=== PATIENT | female | born 1955 | race Caucasian/White ===

== ENCOUNTER 2023-05-27 19:31 | Observation (INO) | payer MEDICARE, SELFPAY ==
[2023-05-27 19:32] VITALS: BP 139/56; PULSE 106; RESP 18; TEMP 37; O2SAT 98
--- NOTE | 2023-05-27 20:01 | EKG12_ITS ---
Test Reason : DYSRHYTHMIA Blood Pressure : / mmHG Vent. Rate : 093 BPM Atrial Rate : 093 BPM P-R Int : 126 ms QRS Dur : 080 ms QT Int : 360 ms P-R-T Axes : 070 053 088 degrees QTc Int : 447 ms Normal sinus rhythm Possible Left atrial enlargement Nonspecific ST and T wave abnormality Abnormal ECG Confirmed by Reuben Navarrete ([id number]), supervising film or videotape editor NALDO AMEZCUA ([id number]) on 05/28/2023 11:05:59 AM Referred By: Confirmed By:Reuben Navarrete
--- NOTE | 2023-05-27 20:18 | EX.ED.DYSGE1 ---
HPI <EL Lynn - Last Filed: 05/27/23 22:21> History of Present Illness Chief Complaint: Fall Narrative Narrative: Patient is a 67-year-old female with history of hypertension hyperlipidemia diabetes who presents to the emergency department after being down on the floor for 5 days. Patient states 5 days ago, she got on her butt to get some boxes out from under her bed and she was unable to get herself up. Her phone was out of battery, she was unable to be found until she was able to hit the window with a broom and someone saw her. Patient states that she was able to eat a sleeve of cookies as well as Coke 0 however she was defecating and urinating on herself. Patient states that her butt is sore, she also has abrasions to bilateral elbows. Patient does not know why she was so weak. She normally does not walk with any walker or cane. She is here for evaluation [facility] <EL Lynn - Last Filed: 05/27/23 22:21> [facility] Home Medications losartan 100 mg tablet 100 mg PO QDAY #90 tabs 05/05/17 [Rx Last Taken Unknown] metoprolol tartrate 100 mg tablet 100 mg PO BID #180 tabs 05/05/17 [Rx Last Taken Unknown] pravastatin 40 mg tablet 40 mg PO QHS #90 tabs 05/05/17 [Rx Last Taken Unknown] amlodipine 10 mg tablet 10 mg PO QDAY #90 tabs 04/20/19 [Rx Last Taken Unknown] doxazosin 4 mg tablet,extended release 24 hr (Cardura XL) 4 mg PO QDAY #90 tabs 05/17/19 [Rx Last Taken Unknown] aspirin 81 mg tablet,delayed release (Adult Low Dose Aspirin) 81 mg PO DAILY 05/27/23 [History Last Taken Unknown] cholecalciferol (vitamin D3) 250 mcg (10,000 unit) capsule 250 mcg PO DAILY 05/27/23 [History Last Taken Unknown] insulin detemir U-100 100 unit/mL (3 mL) subcutaneous pen (Levemir FlexPen) 70 unit subcut QHS 05/27/23 [History Last Taken Unknown] metformin 1,000 mg tablet 1,000 mg PO BID 05/27/23 [History Last Taken Unknown] Allergy/AdvReac Type Severity Reaction Status Date / Time lisinopril AdvReac cough Verified 05/27/23 19:41 Social History Smoking Status: Current every day smoker tobacco type: cigarettes ROS <EL Lynn - Last Filed: 05/27/23 22:21> ROS ED ROS Narrative Constitutional: Negative for fever, chills, weight loss. Positive for weakness Eyes: Negative for vision loss, vision change, double vision ENT: Negative for any sore throat, ear pain, congestion Cardiovascular: Negative for any chest pain, tightness, palpitations Respiratory: Negative for any cough, sputum production, hemoptysis, dyspnea, dyspnea on exertion, orthopnea Gastrointestinal: Negative for any abdominal pain, nausea, vomiting, diarrhea, constipation, blood in stool, blood in vomit : Negative for any urinary frequency, dysuria, retention, blood in urine Muscle skeletal: Negative for any neck pain, back pain Neurological: Negative for any headache, syncope, dizziness Skin: Negative for any rashes, itching, lacerations. Positive for abrasions to bilateral elbows Psychiatric: Negative for any depression, anxiety, stress, suicidal ideation, homicidal ideation Hematologic: Negative for any excessive bruising, easy bleeding EXAM <EL Lynn - Last Filed: 05/27/23 22:21> Physical Exam Narrative Exam Narrative: Vital signs reviewed. Patient did appear disheveled. Patient's legs were covered with urine and feces HEET: Head normocephalic atraumatic, TMs clear bilaterally. Posterior pharynx is clear, dry mucous membranes. Nares clear bilaterally. Neck: Supple with no lymphadenopathy or tenderness. No signs of meningismus. Cardiac: Regular rate and rhythm no murmurs gallops or rubs, equal peripheral pulses bilaterally. Respiratory: Lungs clear to auscultation bilaterally. No chest tenderness. Abdomen: Soft, nontender, nondistended. No abdominal bruit or pulsatile masses. No hepatosplenomegaly Extremities: No peripheral edema, no signs of gross trauma or deformity. Active full range of motion of all extremities. Neuro: Cranial nerves II through XII intact, no focal neurological deficits. Skin: Clean dry and intact with no rash, purpura, petechiae, vesicles or pustules. Backs/flank: No CVA tenderness, no midline spinal tenderness, no deformity. I did turn the patient, patient does have pain on palpation to the buttocks patient does have a stage II pressure ulcer on coccyx, small wounds to the buttocks where she was scooting around.. Patient is able to flex and extend all upper and lower extremities. Psych: Normal mood and affect. No SI, HI or acute psychosis. Const Vital Signs: 05/27/23 19:32 05/27/23 19:32 05/27/23 20:32 Temperature 98.6 F Temperature Source Oral Pulse Rate 106 H 95 Respiratory Rate 18 20 H Respiratory Effort Normal Non-Labored Respiratory Depth Normal Respiratory Pattern Normal Blood Pressure 139/56 H 142/56 H Blood Pressure Mean 83 84 Pulse Ox 98 Oxygen Delivery Method Room Air Room Air 05/27/23 21:00 05/27/23 22:00 Temperature Temperature Source Pulse Rate 73 89 Respiratory Rate 14 20 H Respiratory Effort Respiratory Depth Respiratory Pattern Blood Pressure 143/78 H 135/52 H Blood Pressure Mean 99 79 Pulse Ox 96 Oxygen Delivery Method Room Air <Dr. Dayday Roberts DO - Last Filed: 05/27/23 22:30> Physical Exam Const Vital Signs: 05/27/23 19:32 05/27/23 19:32 05/27/23 20:32 Temperature 98.6 F Temperature Source Oral Pulse Rate 106 H 95 Respiratory Rate 18 20 H Respiratory Effort Normal Non-Labored Respiratory Depth Normal Respiratory Pattern Normal Blood Pressure 139/56 H 142/56 H Blood Pressure Mean 83 84 Pulse Ox 98 Oxygen Delivery Method Room Air Room Air 05/27/23 21:00 05/27/23 22:00 Temperature Temperature Source Pulse Rate 73 89 Respiratory Rate 14 20 H Respiratory Effort Respiratory Depth Respiratory Pattern Blood Pressure 143/78 H 135/52 H Blood Pressure Mean 99 79 Pulse Ox 96 Oxygen Delivery Method Room Air MICHAEL <EL Lynn - Last Filed: 05/27/23 22:21> [facility] Lab Data Labs: Laboratory Results - last 24 hr 05/27/23 05/27/23 20:15 20:52 WBC 9.7 RBC 3.95 L Hgb 10.9 L Hct 33.9 L MCV 85.8 MCH 27.6 MCHC 32.2 RDW Std Deviation 45.3 H RDW Coeff of Davian 14.6 Plt Count 292 MPV 9.6 Immature Gran % (Auto) 1.000 H Neut % (Auto) 63.7 Lymph % (Auto) 20.4 [place] % (Auto) 11.5 H Eos % (Auto) 2.7 Baso % (Auto) 0.7 Absolute Neuts (auto) 6.2 Absolute Lymphs (auto) 1.99 Nucleated RBC % 0 Sodium 142 Potassium 3.5 Chloride 112 H Carbon Dioxide 21.0 Anion Gap 9 BUN 18 Creatinine 0.77 Est GFR (MDRD) Af Amer 96 Est GFR (MDRD) Non-Af 79 BUN/Creatinine Ratio 23.3 H Glucose 186 H Lactic Acid 1.5 Calcium 8.8 Total Bilirubin 0.60 AST 23 ALT 21 Alkaline Phosphatase 60 Total Creatine Kinase 359 H Troponin I High Sens 11 Total Protein 6.7 Albumin 2.6 L Globulin 4.1 Albumin/Globulin Ratio 0.6 L Urine Color Yellow Urine Clarity Sl. Cloudy Urine pH 5.0 Ur Specific [place] 1.025 Urine Protein 100 H Urine Glucose (UA) Normal Urine Ketones 150 A* Urine Occult Blood 25 H Urine Nitrite Negative Urine Bilirubin 1 H Urine Urobilinogen 4 H Ur Leukocyte Esterase Negative Urine RBC 0-5 SEEN Urine WBC 0 SEEN Ur Squamous Epith Cells 10-25 SEEN Amorphous Sediment 1+ URATE Urine Bacteria 0 SEEN Hyaline Casts 0-5 SEEN Urine Mucus 0 SEEN Radiography Diagnostic Testing: Clinical Impression(s) from Imaging Studies Chest X-Ray 05/27/23 21:12 IMPRESSION: No acute pulmonary finding. Electronically Signed: Cedric Green MD at 22:06 EDT , Pelvis X-Ray 05/27/23 21:12 IMPRESSION: No evidence of displaced pelvic or hip fracture. Electronically Signed: Cedric Green MD at 22:02 EDT , EKG Normal sinus rhythm: Attestation: I personally reviewed and interpreted this EKG as follows: Interpretation: Sinus Rhythm Comments: Normal sinus rhythm, rate of 93 bpm, ID 126 ms, QRS duration 80 ms, no acute ST elevation, no acute infarct noted Treatment and Re-Evaluation :: Differential diagnosis includes however is not limited to: Pelvic fracture, electrolyte abnormality, rhabdomyolysis, UTI, skin breakdown, kidney failure Patient appears disheveled, patient has defecation, urine all over her body. Patient has been on the ground for the last 5 days scooting around the house. Patient will receive laboratory values, IV fluids. I am concerned for rhabdomyolysis. CK total will be ordered. Patient received x-rays of her chest as well as her pelvis. Patient does have multiple wounds on her buttocks. Patient no obvious signs of gross trauma. Patient is acting appropriate alert and orient x 4. All radiologic examinations were read, reviewed by the emergency department attending. From these reads, a plan of care will be put in place. Patient CBC was unremarkable, slight anemia with hemoglobin 10.9. Patient's chemistries showed normal renal function, glucose is 186, total creatinine was 359. Patient's urinalysis was positive for ketones however no infection. Patient's x-ray of the pelvis shows no evidence of displaced pelvic or hip fracture. Chest x-ray was unremarkable. EKG was unremarkable. Patient will need to be admitted to hospital, patient was too weak to walk, has been on the ground for 5 days. I do not believe the patient can take care of herself. Patient also has new ulcerations to her coccyx as well as to her buttocks. I will speak to the hospitalist. Patient was given IV fluids. Patient remained stable. <Dr. Dayday Roberts, DO - Last Filed: 05/27/23 22:30> [facility] Narrative Medical decision making narrative: I have personally performed a face to face assessment of the patient and have reviewed the ALYSSA Note. I performed a substantive portion of the visit including all aspects of the following. My cifuentes findings include: History: Patient presents with generalized weakness that has been getting worse over the past 5 days. Patient states she got onto the ground to get something from underneath of her bed. Patient states she was too weak to get up after this. Patient states she has been crawling on the floor for the last 5 days. Patient was able to attract attention to somebody walking by her apartment today and they were able to call EMS for transport to the hospital. Patient admits to feeling weak all over. Patient states it is worse in her neck, back, and legs. Patient states nothing makes it better and nothing makes it worse. Exam: Vital signs are stable. Patient is afebrile. Patient is in no acute distress. Cranial nerves II through XII are intact. There are no focal motor or sensory deficits noted. There are multiple skin tears and abrasions. There is no active bleeding noted. Heart was regular and mildly tachycardic. Lungs are clear and equal bilaterally. There is good respiratory effort noted. Abdomen is soft. Bowel sounds are normal. There is no tenderness. Medical Decision Making: Differential diagnosis includes acute kidney injury, dehydration, general weakness, debility, rhabdomyolysis, urinary tract infection, anemia, and debility. CBC will be obtained to assess for leukocytosis and anemia. Comprehensive metabolic profile will be obtained to assess for electrolyte abnormality, renal function, and hepatic function. Serum lactate will be obtained to assess for sepsis. Urinalysis will be obtained to assess for urinary tract infection and myoglobinuria. Total CPK will be obtained to assess for rhabdomyolysis. High-sensitivity troponin will be obtained to assess for cardiac ischemia. EKG will be obtained to assess for cardiac dysrhythmia and cardiac ischemia. Chest x-ray will be obtained to assess for pneumonia. Pelvis x-rays will be obtained to assess for pelvic fracture and hip fracture. Patient was given IV fluids. CBC was reviewed. There is a mild anemia with a hemoglobin of 10.9 and hematocrit of 33.9. Comprehensive metabolic profile was reviewed. Glucose was slightly elevated at 186. Chloride was slightly elevated at 112. Anion gap was normal. CO2 was normal. Total CPK was reviewed and was mildly elevated at 359. Serum lactate was reviewed and was normal at 1.5. High-sensitivity troponin was reviewed and was normal at 11. EKG was obtained. On my independent interpretation, it shows normal sinus rhythm with a rate of 93. ID interval, QRS interval, and QTc intervals were within normal limits. [place] was normal. There are nonspecific ST-T wave changes noted. There are no prior EKGs available for comparison. Because of her debility and general weakness, I recommended admission to the hospital. Case was discussed with the hospitalist. He will admit the patient to his service. Patient understood and was agreeable with the plan. All questions were answered. Lab Data Labs: Laboratory Results - last 24 hr 05/27/23 05/27/23 20:15 20:52 WBC 9.7 RBC 3.95 L Hgb 10.9 L Hct 33.9 L MCV 85.8 MCH 27.6 MCHC 32.2 RDW Std Deviation 45.3 H RDW Coeff of Davian 14.6 Plt Count 292 MPV 9.6 Immature Gran % (Auto) 1.000 H Neut % (Auto) 63.7 Lymph % (Auto) 20.4 [place] % (Auto) 11.5 H Eos % (Auto) 2.7 Baso % (Auto) 0.7 Absolute Neuts (auto) 6.2 Absolute Lymphs (auto) 1.99 Nucleated RBC % 0 Sodium 142 Potassium 3.5 Chloride 112 H Carbon Dioxide 21.0 Anion Gap 9 BUN 18 Creatinine 0.77 Est GFR (MDRD) Af Amer 96 Est GFR (MDRD) Non-Af 79 BUN/Creatinine Ratio 23.3 H Glucose 186 H Lactic Acid 1.5 Calcium 8.8 Total Bilirubin 0.60 AST 23 ALT 21 Alkaline Phosphatase 60 Total Creatine Kinase 359 H Troponin I High Sens 11 Total Protein 6.7 Albumin 2.6 L Globulin 4.1 Albumin/Globulin Ratio 0.6 L Urine Color Yellow Urine Clarity Sl. Cloudy Urine pH 5.0 Ur Specific [place] 1.025 Urine Protein 100 H Urine Glucose (UA) Normal Urine Ketones 150 A* Urine Occult Blood 25 H Urine Nitrite Negative Urine Bilirubin 1 H Urine Urobilinogen 4 H Ur Leukocyte Esterase Negative Urine RBC 0-5 SEEN Urine WBC 0 SEEN Ur Squamous Epith Cells 10-25 SEEN Amorphous Sediment 1+ URATE Urine Bacteria 0 SEEN Hyaline Casts 0-5 SEEN Urine Mucus 0 SEEN Radiography Diagnostic Testing: Clinical Impression(s) from Imaging Studies Chest X-Ray 05/27/23 21:12 IMPRESSION: No acute pulmonary finding. Electronically Signed: Cedric Green MD at 22:06 EDT , Pelvis X-Ray 05/27/23 21:12 IMPRESSION: No evidence of displaced pelvic or hip fracture. Electronically Signed: Cedric Green MD at 22:02 EDT , Discharge Plan Dx/Rx/DC Orders Clinical Impression: Stage II pressure ulcer, Unable to care for self, Frequent falls, Weakness, Adult failure to thrive Disposition Disposition: Acute Care Hospital [facility]
[2023-05-27] MEDS: 0.9% Normal Saline (1000mL) 1,000 ML 1000 ML IV (20:23)
[2023-05-27 20:28] LABS: Absolute Lymphocyte Count 1.99 X10^3/uL (0.83-4.51); Absolute Neutrophil Count 6.2 X10^3/uL (2.0-7.7); Basophil# 0.07 X10^3/uL; Basophil% 0.7 % (0-1); Eosinophil# 0.26 X10^3/uL; Eosinophils% 2.7 % (0-5); Hematocrit 33.9 % (37-47); Hemoglobin 10.9 g/dL (12.0-15.0); Lymphocyte # 1.99 X10^3/ul (0.83-4.51); Lymphocyte % 20.4 % (19-41); Mean Corp Hgb Conc 32.2 g/dL (32-36); Mean Corpuscular Hgb 27.6 pg (27.0-32.0); Mean Corpuscular Volume 85.8 fL (81-99); Mean Platelet Vol. 9.6 fl (6.2-12.0); Monocyte# 1.12 X10^3/uL; Monocyte% 11.5 % (0-10); NRBC Flagged by Analyzer 0 % (0-5); Neutrophil % 63.7 % (47-70); Platelet Count 292 K/mm3 (150-450); RBC Distribution Width CV 14.6 % (11.6-14.6); RBC Distribution Width SD 45.3 fl (35.1-43.9); Red Blood Count 3.95 M/mm3 (4.2-5.4); White Blood Count 9.7 K/mm3 (4.4-11.0)
[2023-05-27 20:32] VITALS: BP 142/56; PULSE 95; RESP 20
[2023-05-27 20:53] LABS: Lactic Acid 1.5 mmol/L (0.4-1.9)
--- NOTE | 2023-05-27 20:54 | ED.RN ---
pt arrived in room 15 with dried feces on legs, bilat, buttocks and feet. SIRI Hess, and this nurse provided marbella-care and bathed pt w/soap and water and bath wipes, pt has open area to coccyx and excoriated groin and buttocks, pt has multiple pinpoint scabbed areas to entire back. Pt reported living alone and no one to check on pt. pt was on the floor of apartment for 5 days,scooting around on buttocks and able to live eating cookies and coke zero per pt.
[2023-05-27 20:55] LABS: ALB/GLOB Ratio 0.6 RATIO (0.9-2.4); AST(SGOT) 23 U/L (15-37); Alanine Aminotransfer ALT/SGPT 21 U/L (13-56); Albumin, Serum 2.6 g/dL (3.2-5.0); Alkaline Phosphatase 60 U/L (45-117); Anion Gap 9 (5-15); BUN 18 mg/dL (7-18); BUN/Creat Ratio 23.3 RATIO (10-20); CPK Total, Creatine Kinase 359 U/L (26-192); Calcium,Total 8.8 mg/dL (8.5-10.1); Chloride 112 mmol/L (98-107); Creatinine, Serum 0.77 mg/dL (0.55-1.02); EST Glomerular Filtration Rate 79 mL/min (>60); Est Glom Filt Rate - Afr Amer 96 mL/min (>60); Globulin 4.1 g/dL (2.2-4.2); Glucose 186 mg/dL (74-106); Potassium 3.5 mmol/L (3.5-5.1); Protein, Total 6.7 g/dL (6.4-8.2); Sodium Level 142 mmol/L (136-145); Troponin-I HS 11 pg/mL (3.0-54.0)
[2023-05-27 20:59] LABS: Bacteria 0 SEEN /hpf (None Seen); Mucous, Urine 0 SEEN /hpf (<or=2+); White Blood Cells 0 SEEN /hpf (0-5)
[2023-05-27 21:00] VITALS: BP 143/78; PULSE 73; RESP 14; O2SAT 96
[2023-05-27 21:06] LABS: Color, Urine Yellow (Yellow); Glucose, Dipstick Normal (Normal); Leukocyte Esterase-Dipstick Negative /ul (Negative); Nitrite-Dipstick Negative (Negative); Occult Blood-Urine 25 /ul (Negative); Protein-Dipstick 100 mg/dl (Negative); Specific Gravity, Urine 1.025 (1.002-1.030); Urine Clarity Sl. Cloudy (Clear); Urine Urobilinogen 4 mg/dl (Normal)
--- NOTE | 2023-05-27 21:12 | RAD_ITS ---
INDICATION: cough EXAMINATION/TECHNIQUE: X-RAY - XR Chest 1 View COMPARISON: 07/23/2011 FINDINGS: LINES/DEVICES: None. LUNGS: The lungs are well expanded. No consolidation, edema or effusion. No pneumothorax. MEDIASTINUM AND CARDIOVASCULAR STRUCTURES: Cardiac silhouette not enlarged. Aorta is tortuous and atherosclerotic. Central airways and mediastinal contour are unremarkable. BONES AND SOFT TISSUES: No acute osseous abnormalities. RAD/Chest 1 View (Portable) IMPRESSION: No acute pulmonary finding. Electronically Signed: Cedric Green MD at 22:06 EDT ,
--- NOTE | 2023-05-27 21:12 | RAD_ITS ---
INDICATION: trauma EXAMINATION/TECHNIQUE: X-RAY - XR Pelvis 1 or 2 Views COMPARISON: No relevant prior comparison study available FINDINGS: PELVIC BONES: No displaced fracture, destructive or sclerotic lesions. Note that overlapping bowel shadows may however obscure fine detail. Sacroiliac joints are unremarkable. No widening of the pubic symphysis. HIPS: The articular structures are unremarkable. No displaced fracture seen in this frontal view. SOFT TISSUES: No soft tissue swelling or gas. RAD/Pelvis 1 or 2 Views IMPRESSION: No evidence of displaced pelvic or hip fracture. Electronically Signed: Cedric Green MD at 22:02 EDT ,
[2023-05-27 21:41] LABS: Urine Bilirubin Dipstick 1 mg/dL (Negative)
[2023-05-27 21:43] LABS: Ketone-Dipstick 150 mg/dl (Negative)
[2023-05-27 21:44] LABS: Amorphous Sediment 1+ URATE; Hyaline Cast 0-5 SEEN /lpf (0-5); Red Blood Cells-Urine 0-5 SEEN /hpf (0-5); Squamous Epithelial Cells - UA 10-25 SEEN /hpf (5-10)
[2023-05-27 22:00] VITALS: BP 135/52; PULSE 89; RESP 20
--- NOTE | 2023-05-27 22:19 | HP.PCM.HOS_ITS ---
[facility] - General General Date of Admission: 05/27/23 Date of Service: 05/27/23 Chief Complaint: Stuck on Floor 5 Days. HPI Narrative SAMINA LIZ, is a 67 F with a past medical history of essential hypertension, hyperlipidemia, DM-2; of unknown control, coronary artery disease; status post CABG (2011), history of hepatitis B, history of renal calculi, chronic Stage II pressure ulcers on Sacrum and Buttocks, tobacco abuse, history of pilonidal cyst; status post excision, OA and history of frequent Falls who presents to [facility] ER complaining of being unable to get up from the floor. Ms. Liz reports her symptoms began approximately 5 days ago when she got down on the floor to get some boxes from under her bed when she realized she was unable to get herself up. Unfortunately, she then realized her phone was the charged so she found a sleeve of cookies as well as Coke 0 and began hitting her window with a broom until someone thankfully saw her. She states that her buttocks are sore and she also has abrasions over her elbows after crawling around the floor. She goes on to state she does not know why she is so weak she generally does not use a walker or cane. She was noted to be soiled with urine and feces and is now deemed to be unsafe to return home to live independently. She denies associated fever, chills, nausea, vomiting, chest pain or shortness of breath but she does admit to acute pain pain over her chronic stage II ulcers on her sacrum and her buttocks. In the ER she was noted to have unremarkable laboratory studies and vital signs other than a mildly elevated creatinine kinase of 359 U/L present on admission and mild hypoalbuminemia of 2.6 g/dL present on admission and she was then admitted to the general medical floor under observation status for ongoing care for stay that is expected to be less than 48 hours. [facility] Medical History Diabetes Former smoker Hepatitis Hypertension Kidney calculi Pilonidal cyst Home Medications losartan 100 mg tablet 100 mg PO QDAY #90 tabs 05/05/17 [Rx Last Taken Unknown] pravastatin 40 mg tablet 40 mg PO QHS #90 tabs 05/05/17 [Rx Last Taken Unknown] amlodipine 10 mg tablet 10 mg PO QDAY #90 tabs 04/20/19 [Rx Last Taken Unknown] aspirin 81 mg tablet,delayed release (Adult Low Dose Aspirin) 81 mg PO BID 05/27/23 [History Last Taken Unknown] cholecalciferol (vitamin D3) 250 mcg (10,000 unit) capsule 125 mcg PO DAILY 05/27/23 [History Last Taken Unknown] insulin detemir U-100 100 unit/mL (3 mL) subcutaneous pen (Levemir FlexPen) 70 unit subcut QHS 05/27/23 [History Last Taken Unknown] metformin 1,000 mg tablet 1,000 mg PO BID 05/27/23 [History Last Taken Unknown] doxazosin 4 mg tablet,extended release 24 hr (Cardura XL) 4 mg PO DAILY 05/28/23 [History Last Taken Unknown] metoprolol tartrate 100 mg tablet 50 mg PO BID 05/28/23 [History Last Taken Unknown] Allergy/AdvReac Type Severity Reaction Status Date / Time lisinopril AdvReac cough Verified 05/27/23 19:41 Surgical History H/O section S/P triple vessel bypass Social History Smoking Status: Former smoker ROS ROS Narrative Review of systems: General: Patient admits to generalized weakness but she denies fevers or chills. HENT: Denies headache, denies stuffy nose, denies sore throat EYES: Denies changes in vision or discharge from eyes. Resp: Denies cough, denies shortness of breath Cardiac: Denies chest pain, palpitations or heart racing. GI: Denies abdominal pain, denies changes in bowel, denies nausea or vomiting. : Denies changes in urination Extremity: Denies swelling Musculoskeletal: Patient has pain in buttocks and sacrum after prolonged time on floor. She otherwise denies arthralgias or myalgias. Neuro: Patient denies associated headache, paresthesias or focal neurologic weakness. Heme: Denies any bleeding or bruising Skin: Denies rashes Psychiatric: No complaints voiced related to uncontrolled depression or anxiety. Endocrine: No polyuria, polydipsia or polyphagia. The rest of the 14 point ROS was negative except for positives in HPI. Vital Signs Vital Signs Vital Signs: 05/27/23 19:32 05/27/23 19:32 05/27/23 20:32 Temperature 98.6 F Temperature Source Oral Pulse Rate 106 H 95 Respiratory Rate 18 20 H Respiratory Effort Normal Non-Labored Respiratory Depth Normal Respiratory Pattern Normal Blood Pressure 139/56 H 142/56 H Blood Pressure Mean 83 84 Pulse Ox 98 Oxygen Delivery Method Room Air Room Air 05/27/23 21:00 05/27/23 22:00 Temperature Temperature Source Pulse Rate 73 89 Respiratory Rate 14 20 H Respiratory Effort Respiratory Depth Respiratory Pattern Blood Pressure 143/78 H 135/52 H Blood Pressure Mean 99 79 Pulse Ox 96 Oxygen Delivery Method Room Air Physical Exam Const alert, oriented x3, no apparent distress and average body habitus General Appearance: cooperative HEENT normocephalic, head/scalp atraumatic, hearing grossly normal bilaterally and moist oral mucous membranes Eyes PERRL and EOMs intact bilaterally Neck no lymphadenopathy and supple Resp normal respiratory effort, no retractions, no use of accessory muscles and clear to auscultation bilaterally Cardio regular rate and regular rhythm GI normal to inspection, nondistended, normoactive bowel sounds, soft to palpation, non-tender and non-distended Extremity Extremity Narrative: Patient has abrasions to her elbows bilaterally. Skin Skin Narrative: Patient has 2 stage II decubitus ulcers one over the sacrum and one over the left lower buttock. Neuro oriented x3, CN's II-XII intact bilaterally, moves all extremities and no focal motor deficits Sensorium / Orientation: awake, alert, oriented to person, oriented to place and oriented to time Speech: speech normal Psych affect normal Results Medical Records Data Attestation: I reviewed the patient's medical records Lab / Micro Data Attestation: I reviewed the patient's lab results. 05/27/23 20:15 05/27/23 20:15 Labs: Laboratory Results - last 24 hr 05/27/23 20:15: WBC 9.7, RBC 3.95 L, Hgb 10.9 L, Hct 33.9 L, MCV 85.8, MCH 27.6, MCHC 32.2, RDW Std Deviation 45.3 H, RDW Coeff of Davian 14.6, Plt Count 292, MPV 9.6, Immature Gran % (Auto) 1.000 H, Neut % (Auto) 63.7, Lymph % (Auto) 20.4, [place] % (Auto) 11.5 H, Eos % (Auto) 2.7, Baso % (Auto) 0.7, Absolute Neuts (auto) 6.2, Absolute Lymphs (auto) 1.99, Nucleated RBC % 0, Sodium 142, Potassium 3.5, Chloride 112 H, Carbon Dioxide 21.0, Anion Gap 9, BUN 18, Creatinine 0.77, Est GFR (MDRD) Af Amer 96, Est GFR (MDRD) Non-Af 79, BUN/Creatinine Ratio 23.3 H, Glucose 186 H, Lactic Acid 1.5, Calcium 8.8, Total Bilirubin 0.60, AST 23, ALT 21, Alkaline Phosphatase 60, Total Creatine Kinase 359 H, Troponin I High Sens 11, Total Protein 6.7, Albumin 2.6 L, Globulin 4.1, Albumin/Globulin Ratio 0.6 L 05/27/23 20:52: Urine Color Yellow, Urine Clarity Sl. Cloudy, Urine pH 5.0, Ur Specific [place] 1.025, Urine Protein 100 H, Urine Glucose (UA) Normal, Urine Ketones 150 A*, Urine Occult Blood 25 H, Urine Nitrite Negative, Urine Bilirubin 1 H, Urine Urobilinogen 4 H, Ur Leukocyte Esterase Negative, Urine RBC 0-5 SEEN, Urine WBC 0 SEEN, Ur Squamous Epith Cells 10-25 SEEN, Amorphous Sediment 1+ URATE, Urine Bacteria 0 SEEN, Hyaline Casts 0-5 SEEN, Urine Mucus 0 SEEN Imaging Radiology Impression Chest X-Ray 05/27/23 21:12 IMPRESSION: No acute pulmonary finding. Electronically Signed: Cedric Green MD at 22:06 EDT , Pelvis X-Ray 05/27/23 21:12 IMPRESSION: No evidence of displaced pelvic or hip fracture. Electronically Signed: Cedric Green MD at 22:02 EDT , Assessment & Plan Assessment/Plan (1) Generalized weakness: (2) Ambulatory dysfunction: (3) Unable to care for self: (4) Stage II pressure ulcer: QUALIFIERS: Pressure injury location: sacral region Qualified Code(s): L89.152 - Pressure ulcer of sacral region, stage 2 PLAN: Plan 1. Generalized weakness with ambulatory dysfunction causing patient to be stuck on floor 5 days - Admit to general medical floor under observation status. PT/OT and case management consult and treat in the a.m. without appreciated in advance. Give Tylenol as needed pain or fever. 2. Mildly elevated creatinine kinase of 359 U/L present on admission consistent with myotoxicity from prolonged downtime arising from #1 - Volume resuscitate and recheck CK in the a.m. to monitor for improvement. 3. Mild hypoalbuminemia of 2.6 g/dL present on admission suspicious for possible protein calorie malnutrition - Check prealbumin to confirm suspicion. Add Ensure to meals. 4. Chronic Stage II pressure ulcers on Sacrum and Left lower buttocks - We we w ill consult wound nurse to see patient on rounds in the a.m. for further recommendations with help appreciated in advance. 5. Essential hypertension - Resume home regimen plus give as needed IV hydr alazine for systolic blood pressure greater than 160 mmHg. 6. Hyperlipidemia - Continue statin. 7. DM-2; of unknown control - ADA diet. Fingerstick blood sugars ACHS + scale insulin. Check hemoglobin A1c to objectively evaluate quality of diabetic control. 8. Coronary artery disease; status post CABG (2011) - Noted. 9. History of hepatitis B - Stable. 10. History of renal calculi - Noted no evidence of recurrence at this time. 11. Tobacco abuse - Tobacco cessation will be strongly encouraged. 12. History of pilonidal cyst; status post excision - Noted. 13. OA - Give Tylenol as needed. 14. DVT prophylaxis - Lovenox 40 mg subcu daily. Total time: Approximately 75 minutes. Charges/Coding Visit Charges OBSV E&M: 86930 Observ/hosp same date L2
[2023-05-27 23:00] VITALS: BP 130/51; PULSE 88; RESP 21
[2023-05-27 23:31] VITALS: BP 130/51; PULSE 88; RESP 21; TEMP 36.7; O2SAT 94
--- NOTE | 2023-05-27 23:37 | ED.RN ---
pt has a dark scabbed area to lower left buttock, many attempts to remove dark area when pt was covered in feces to no avail. scab stayed intact.
[2023-05-27 23:54] VITALS: BMI 29.7
[2023-05-28] VITALS (8 sets, daily range): BP systolic 108–142; BP diastolic 50–63; PULSE 80–110; RESP 16–18; TEMP 36.6–37.6; O2SAT 96–99; BMI 29.7
[2023-05-28 00:41] LABS: Prealbumin 9.2 mg/dL (20.0-40.0)
[2023-05-28 00:49] LABS: Bedside Glucose 128 mg/dL (74-106)
[2023-05-28] MEDS: 0.9% Normal Saline (1000mL) 1,000 ML 75 ML IV (01:39)
[2023-05-28 06:47] LABS: Bedside Glucose 156 mg/dL (74-106)
[2023-05-28 07:54] LABS: Absolute Lymphocyte Count 2.49 X10^3/uL (0.83-4.51); Absolute Neutrophil Count 4.8 X10^3/uL (2.0-7.7); Basophil# 0.06 X10^3/uL; Basophil% 0.7 % (0-1); Eosinophil# 0.24 X10^3/uL; Eosinophils% 2.7 % (0-5); Hematocrit 30.5 % (37-47); Hemoglobin 9.8 g/dL (12.0-15.0); Lymphocyte # 2.49 X10^3/ul (0.83-4.51); Lymphocyte % 27.9 % (19-41); Mean Corp Hgb Conc 32.1 g/dL (32-36); Mean Corpuscular Hgb 27.8 pg (27.0-32.0); Mean Corpuscular Volume 86.4 fL (81-99); Mean Platelet Vol. 10.2 fl (6.2-12.0); Monocyte# 1.23 X10^3/uL; Monocyte% 13.8 % (0-10); NRBC Flagged by Analyzer 0 % (0-5); Neutrophil # 4.83 X10^3/uL (2.7-7.7); Platelet Count 257 K/mm3 (150-450); RBC Distribution Width CV 14.6 % (11.6-14.6); RBC Distribution Width SD 45.8 fl (35.1-43.9); Red Blood Count 3.53 M/mm3 (4.2-5.4); White Blood Count 8.9 K/mm3 (4.4-11.0)
--- NOTE | 2023-05-28 08:23 | PN.HOSP_ITS ---
Reason for Visit Reason for Visit: Diagnoses Pressure ulcer of sacral region, stage 2 (05/27/23) Difficulty in walking, not elsewhere classified (05/27/23) Weakness (05/27/23) Other specified health status (05/27/23) Objective Data Objective Data Vital Signs: Vital Signs Temp Pulse Resp BP Pulse Ox O2 Del Method 98 F 87 16 111/54 L 97 Room Air 05/28/23 04:53 05/28/23 04:53 05/28/23 04:53 05/28/23 04:53 05/28/23 07:07 05/28/23 07:07 Oxygen Delivery Method Room Air Weight: 190 lb 0.615 oz Body Mass Index (BMI) 29.7 Intake & Output: Intake and Output for Last 24 Hours 05/26/23 05/27/23 05/28/23 23:59 23:59 23:59 Intake Total 1000 / 1150 350 / 350 Balance 1000 / 1150 350 / 350 Lab / Micro Data 05/28/23 06:30 05/28/23 06:30 Labs: Laboratory Results - last 24 hr 05/27/23 20:15: WBC 9.7, RBC 3.95 L, Hgb 10.9 L, Hct 33.9 L, MCV 85.8, MCH 27.6, MCHC 32.2, RDW Std Deviation 45.3 H, RDW Coeff of Davian 14.6, Plt Count 292, MPV 9.6, Immature Gran % (Auto) 1.000 H, Neut % (Auto) 63.7, Lymph % (Auto) 20.4, [place] % (Auto) 11.5 H, Eos % (Auto) 2.7, Baso % (Auto) 0.7, Absolute Neuts (auto) 6.2, Absolute Lymphs (auto) 1.99, Nucleated RBC % 0, Sodium 142, Potassium 3.5, Chloride 112 H, Carbon Dioxide 21.0, Anion Gap 9, BUN 18, Creatinine 0.77, Est GFR (MDRD) Af Amer 96, Est GFR (MDRD) Non-Af 79, BUN/Creatinine Ratio 23.3 H, Glucose 186 H, Lactic Acid 1.5, Calcium 8.8, Total Bilirubin 0.60, AST 23, ALT 21, Alkaline Phosphatase 60, Total Creatine Kinase 359 H, Troponin I High Sens 11, Total Protein 6.7, Albumin 2.6 L, Globulin 4.1, Albumin/Globulin Ratio 0.6 L, Prealbumin 9.2 L 05/27/23 20:52: Urine Color Yellow, Urine Clarity Sl. Cloudy, Urine pH 5.0, Ur Specific [place] 1.025, Urine Protein 100 H, Urine Glucose (UA) Normal, Urine Ketones 150 A*, Urine Occult Blood 25 H, Urine Nitrite Negative, Urine Bilirubin 1 H, Urine Urobilinogen 4 H, Ur Leukocyte Esterase Negative, Urine RBC 0-5 SEEN, Urine WBC 0 SEEN, Ur Squamous Epith Cells 10-25 SEEN, Amorphous Sediment 1+ URATE, Urine Bacteria 0 SEEN, Hyaline Casts 0-5 SEEN, Urine Mucus 0 SEEN 05/28/23 00:31: POC Glucose 128 H 05/28/23 06:29: POC Glucose 156 H 05/28/23 06:30: WBC 8.9, RBC 3.53 L, Hgb 9.8 L, Hct 30.5 L, MCV 86.4, MCH 27.8, MCHC 32.1, RDW Std Deviation 45.8 H, RDW Coeff of Davian 14.6, Plt Count 257, MPV 10.2, Immature Gran % (Auto) 0.900, Neut % (Auto) 54.0, Lymph % (Auto) 27.9, [place] % (Auto) 13.8 H, Eos % (Auto) 2.7, Baso % (Auto) 0.7, Absolute Neuts (auto) 4.8, Absolute Lymphs (auto) 2.49, Nucleated RBC % 0 Radiography Diagnostic Testing: Radiology Impression Chest X-Ray 05/27/23 21:12 IMPRESSION: No acute pulmonary finding. Electronically Signed: Cedric Green MD at 22:06 EDT , Pelvis X-Ray 05/27/23 21:12 IMPRESSION: No evidence of displaced pelvic or hip fracture. Electronically Signed: Cedric Green MD at 22:02 EDT , Physical Exam Narrative Seen and examined. Patient states she does her usual house chores and ambulatory. However, patient cannot get out of the floor after she went under her bed to get the boxes out. Complain of buttock feels sore Physical exam General: Alert, Oriented x3, Cooperative HEENT: Atraumatic, PERRLA, EOMI, Normocephalic Oral: No Gingival or Mucosal Lesions/ Ulcerations Neck: Supple, No JVD, Negative Carotid Bruits Chest wall/Lungs: Air entry diminished in bilateral lung bases. No crepitation/rhonchi Cardiovascular: Regular rate, Regular Rhythm, Normal S1, Normal S2, No M/G/R Abdomen: Bowel Sounds Present, Soft, Non Tender, Non-Distended : No dysuria. No renal angle tenderness. No suprapubic tenderness. Extremities: No edema, Capillary Refill Less than 3 Seconds Skin:3 wounds, the first one 2 x 2 centimeter, unstageable covered with black eschar on the left ischium. Another 1, 2.5 x 8.5 x 0.1 cm over angel cleft, old pilonidal sinus. Right buttock, small ulcer less than a centimeter, unstageable . Both elbows have an abrasion. Musculoskeletal: No Tenderness to Palpation of Joints or Extremities. Muscle strength 4/5 at knees and hip joints. Neurological: Cranial nerves II-XII grossly intact, DTR 2+/4. No acute focal neurological deficit. Psych/Mental Status: Flat affect Assessment & Plan Assessment/Plan (1) Generalized weakness: (2) Ambulatory dysfunction: (3) Unable to care for self: (4) Stage II pressure ulcer: QUALIFIERS: Pressure injury location: sacral region Qualified Code(s): L89.152 - Pressure ulcer of sacral region, stage 2 PLAN: Plan 67-year-old female was brought to ED after she was found on the FLOOR for 5 days when she got down to get some boxed out from under the bed . Patient AOx3. She was too weak to get up from the floor. Abrasion on the both elbows. 1. Generalized weakness with ambulatory dysfunction causing patient to be stuck on floor 5 days - Admit to general medical floor under observation status. PT/OT and case management consult. Discharge planning 2. Mildly elevated creatinine kinase of 359 U/L present on admission due to prolonged time-does not meet criteria for acute rhabdomyolysis. Volume resuscitate. Repeat CK3 169. 3. Mild hypoalbuminemia of 2.6 g/dL present on admission -BMI 29.8 kg/m?. Clinically does not look malnourished. Add Ensure to meals. 4. Chronic unstageable pressure ulcers on Sacrum and Left lower buttocks and angel cleft: Wound consult note reviewed. Wound described in physical exam. Dressing as per wound RN. 5. Essential hypertension -blood pressure on lower side, in low 100. Heart rate in 110s. IV fluid normal saline ordered. On beta-jacqueline. Monitor BP. Hold antihypertensive medication. 6. Hyperlipidemia - Continue statin. 7. DM-2; of unknown control - ADA diet. Fingerstick blood sugars ACHS + scale insulin. Check hemoglobin A1c to objectively evaluate quality of diabetic control. 8. Coronary artery disease; status post CABG (2011) - Noted. 9. History of hepatitis B - Stable. 10. History of renal calculi - Noted no evidence of recurrence at this time. 11. Tobacco abuse - Tobacco cessation will be strongly encouraged. 12. History of pilonidal cyst; status post excision - Noted. 13. OA - Give Tylenol as needed. 14. DVT prophylaxis - Lovenox 40 mg subcu daily. Charges/Coding Visit Charges Inpatient E&M: 22880 Subs Hosp L2
--- NOTE | 2023-05-28 09:03 | WOUNDNOTE ---
wound photo: buttocks
[2023-05-28 09:04] LABS: ALB/GLOB Ratio 0.6 RATIO (0.9-2.4); AST(SGOT) 20 U/L (15-37); Alanine Aminotransfer ALT/SGPT 18 U/L (13-56); Albumin, Serum 2.3 g/dL (3.2-5.0); Alkaline Phosphatase 52 U/L (45-117); Anion Gap 5 (5-15); BUN 13 mg/dL (7-18); BUN/Creat Ratio 19.9 RATIO (10-20); Calcium,Total 8.1 mg/dL (8.5-10.1); Chloride 115 mmol/L (98-107); Creatinine, Serum 0.65 mg/dL (0.55-1.02); EST Glomerular Filtration Rate 96 mL/min (>60); Est Glom Filt Rate - Afr Amer 116 mL/min (>60); Estimated Creatinine Clearance 75.91 ml/min; Globulin 3.7 g/dL (2.2-4.2); Glucose 152 mg/dL (74-106); Magnesium 1.7 mg/dL (1.6-2.6); Phosphorus 2.3 mg/dL (2.5-4.9); Potassium 3.3 mmol/L (3.5-5.1); Sodium Level 143 mmol/L (136-145); Thyroid Stim Hormone (TSH) 1.95 uIU/mL (0.358-3.74)
--- NOTE | 2023-05-28 09:05 | WOUNDNOTE ---
wound photo: left ischium
[2023-05-28 10:10] LABS: CPK Total, Creatine Kinase 369 U/L (26-192)
[2023-05-28] MEDS: Aspirin E.C. 81 MG Tablet PO (10:10)
[2023-05-28] MEDS: Doxazosin 1 MG Tablet 2 MG PO ×2 (10:10→22:01)
[2023-05-28] MEDS: Ensure Plus High Protein 120 ML LIQUID PO (10:10)
[2023-05-28] MEDS: Enoxaparin 40 MG/0.4 ML Syringe SC (10:11)
[2023-05-28] MEDS: Metoprolol Tartrate 100 MG Tablet PO (10:11)
[2023-05-28] MEDS: Cholecalciferol (Vit D3) 125 MCG CAPSULE (5,000 UNITS) 250 MCG PO (10:17)
--- NOTE | 2023-05-28 10:34 | CASEMGMT ---
Addendum entered by Nina Banegas 05/28/23 17:02: Social Work [facility] has accepted pt. SW requested precert be started at this time. Pt notified. Plan: [facility], pending precert RENETTA Fleming Addendum entered by Nina Banegas 05/28/23 14:29: Social Work SW met with pt to obtain choices of SNF. Pt preferred providers are 1. TCU and 2. [facility]. Referral to [facility] in TCU and they are unable to accept. Referral sent to [facility]. SW will await determination of acceptance. Precert will be needed prior to discharge. Plan: [facility], pending acceptance and precert RENETTA Fleming Original Note: Social Work SW?to room to meet with patient for initial transition planning/care coordination?assessment.?SW?introduced self and role at [facility].? Pt voices understanding and consents to?assessment.? Pt is A/Ox4 and answers all questions appropriately.?? Care providers, pharmacy, and demographics verified. PCP: Aparna Lozano Preferred Pharmacy: [facility] Insurance: An[employer] Medicare Prescription Benefit:?yes LNOK: Pt has a son listed as a contact, Alan Liz. Pt states she has not spoke to him in 14-15 years. Pt denies any other contacts or supports at home. Living Arrangements: Pt lives alone in a once story apartment. Pt has [address] into her apartment. Pt states that prior to hospitalization, she was able to complete all ADLs and IADLS independently. Transportation:?Pt has a car and is able to transport herself DME: ? grab bars in the shower HHC/SNF: none prior PLAN: After assessment, discussion regarding home situation and review of therapy recommendations, pt is agreeable to short term placement in SNF. A list of SNF providers including quality and resource use data and consistent with the patient?s preferred geographic region, medical needs, and insurance network were provided from the [employer] Guide. Pt requesting time to review list and make SNF choices. All questions regarding SNF placement answered. SW will revisit pt to obtain SNF preferences and make referrals. SW did discuss medical alert with pt and she is interested in information. List of Medical Alert providers given to pt. RENETTA Fleming
[2023-05-28 13:23] LABS: Bedside Glucose 312 mg/dL (74-106)
--- NOTE | 2023-05-28 16:18 | CASEMGMT ---
CHIDI GALLEGOS in to complete RIVERA Form. RN EL explained RIVERA form to patient, patient voiced understanding. Patient signed RIVERA form and filed in chart. Patient provided copy of signed RIVERA form. Patient had no further questions or concerns.
[2023-05-28] MEDS: Glucerna Shake 120 ML LIQUID PO (16:31)
[2023-05-28 17:16] LABS: Bedside Glucose 177 mg/dL (74-106)
[2023-05-28] MEDS: Insulin Glargine-YFGN 100 UNIT/ML Pen 45 UNIT SC (22:01)
[2023-05-28] MEDS: Pravastatin 40 MG Tablet PO (22:02)
[2023-05-28] MEDS: Acetaminophen 325 MG Tablet 650 MG PO (22:02)
[2023-05-28] MEDS: MELATONIN 3 MG TABLET PO (22:02)
[2023-05-28 23:34] LABS: Bedside Glucose 209 mg/dL (74-106)
[2023-05-29] VITALS (9 sets, daily range): BP systolic 113–149; BP diastolic 47–62; PULSE 80–88; RESP 16–18; TEMP 36.6–37.1; O2SAT 96–99; BMI 30.6
[2023-05-29] MEDS: Menthol/Lanolin/Calamine/Znox 113 GM Tube 1 APPLIC TOPICAL ×3 (06:39→21:09)
[2023-05-29 07:23] LABS: Bedside Glucose 161 mg/dL (74-106)
[2023-05-29] MEDS: Enoxaparin 40 MG/0.4 ML Syringe SC (09:04)
[2023-05-29] MEDS: Aspirin E.C. 81 MG Tablet PO (09:05)
[2023-05-29] MEDS: Cholecalciferol (Vit D3) 125 MCG CAPSULE (5,000 UNITS) 250 MCG PO (09:05)
[2023-05-29] MEDS: Doxazosin 1 MG Tablet 2 MG PO ×2 (09:06→21:08)
[2023-05-29] MEDS: Metoprolol Tartrate 50 MG Tablet PO ×2 (09:07→21:09)
[2023-05-29] MEDS: Losartan Potassium 100 MG Tablet PO (09:07)
[2023-05-29 11:54] LABS: Bedside Glucose 245 mg/dL (74-106)
--- NOTE | 2023-05-29 14:03 | PN.HOSP_ITS ---
Reason for Visit Reason for Visit: Diagnoses Pressure ulcer of sacral region, stage 2 (05/27/23) Difficulty in walking, not elsewhere classified (05/27/23) Weakness (05/27/23) Other specified health status (05/27/23) Objective Data Objective Data Vital Signs: Vital Signs Temp Pulse Resp BP Pulse Ox O2 Del Method 98.7 F 88 18 113/50 L 96 Room Air 05/29/23 09:16 05/29/23 11:00 05/29/23 11:00 05/29/23 09:16 05/29/23 12:01 05/29/23 12:01 Oxygen Delivery Method Room Air Weight: 195 lb 8 oz Body Mass Index (BMI) 30.6 Intake & Output: Intake and Output for Last 24 Hours 05/27/23 05/28/23 05/29/23 23:59 23:59 23:59 Intake Total 1000 / 1150 3000 / 3000 300 / 300 Balance 1000 / 1150 3000 / 3000 300 / 300 Medical Nutrition Assessment Dietitian: Malnutrition Criteria Met Start: 05/28/23 13:27 Freq: Status: Active Protocol: Document 05/28/23 13:27 SLA (Rec: 05/28/23 13:27 SLA Desktop) Nutrition Malnutrition Evidence of Malnutrition Exists Yes Malnutrition (severe): Acute Illness/Injury Evidenced By Suboptimal Energy Intake ( Severe),Weight Loss (Severe) Clinical Problem Acute Disease or Injury Related Malnutrition Etiology related to stuck on floor x 5 days so inadequate energy intake Signs/Symptoms as evidenced by 5% unintended wt loss and pt meeting <75% of est nutritional needs x 5 days Status Active Problem Recommendation Dietitian Recommendations/Changes Continue 1800 marco a Cardiac diet as ordered Will change ensure plus high protein tid w/ medpass to glucerna shake d/t diabetes. Lab / Micro Data 05/28/23 06:30 05/28/23 06:30 Labs: Laboratory Results - last 24 hr 05/28/23 16:58: POC Glucose 177 H 05/28/23 21:58: POC Glucose 209 H 05/29/23 07:05: POC Glucose 161 H 05/29/23 11:36: POC Glucose 245 H Physical Exam Narrative Seen and examined. Patient concerned that she lost 3 pounds in about 9 months to 1 year. She states it might have been because of medication as her doctor keep on increasing all her meds. When asked about the specific medication she could not tell me. Physical exam General: Alert, Oriented x3, Cooperative HEENT: Atraumatic, PERRLA, EOMI, Normocephalic Oral: No Gingival or Mucosal Lesions/ Ulcerations Neck: Supple, No JVD, Negative Carotid Bruits Chest wall/Lungs: Air entry diminished in bilateral lung bases. No crepitation/rhonchi Cardiovascular: Regular rate, Regular Rhythm, Normal S1, Normal S2, No M/G/R Abdomen: Bowel Sounds Present, Soft, Non Tender, Non-Distended : No dysuria. No renal angle tenderness. No suprapubic tenderness. Extremities: No edema, Capillary Refill Less than 3 Seconds Skin:3 wounds, the first one 2 x 2 centimeter, unstageable covered with black eschar on the left ischium. Another 1, 2.5 x 8.5 x 0.1 cm over angel cleft, old pilonidal sinus. Right buttock, small ulcer less than a centimeter, unstageable . Both elbows have an abrasion. Musculoskeletal: No Tenderness to Palpation of Joints or Extremities. Muscle s trength 4/5 at knees and hip joints. Neurological: Cranial nerves II-XII grossly intact, DTR 2+/4. No acute focal neurological deficit. Psych/Mental Status: Flat affect Assessment & Plan Assessment/Plan (1) Generalized weakness: (2) Ambulatory dysfunction: (3) Unable to care for self: (4) Stage II pressure ulcer: QUALIFIERS: Pressure injury location: sacral region Qualified Code(s): L89.152 - Pressure ulcer of sacral region, stage 2 PLAN: Plan 67-year-old female was brought to ED after she was found on the FLOOR for 5 days when she got down to get some boxed out from under the bed . Patient AOx3. She was too weak to get up from the floor. Abrasion on the both elbows. 1. Generalized weakness with ambulatory dysfunction causing patient to be stuck on floor 5 days - Admit to general medical floor under observation status. PT/OT and case management consult. Discharge planning 05/28: Patient concerned that she lost 3 pounds in 9 months to 1 year. Home medication reconciliation done. Patient on amlodipine 10 mg daily, metoprolol 50 mg twice daily, losartan 100 mg daily as antihypertensive medications. Patient also on metformin 1000 mg twice daily. Her blood pressure was in 110s today. Amlodipine dose decreased to 5 mg in the evening. Rest medication to continue. BMI is 30.6 kg/m? she might have lost some weight from metformin but as this is good for her diabetes mellitus, and kidney function is normal therefore it is not indicated to decrease. But anyway metformin is on hold during hospital stay. 2. Mildly elevated creatinine kinase of 359 U/L present on admission due to prolonged time-does not meet criteria for acute rhabdomyolysis. Volume resuscitate. Repeat CK3 169. 3. Mild hypoalbuminemia of 2.6 g/dL present on admission -BMI 29.8 kg/m?. Clinically does not look malnourished. Add Ensure to meals. 4. Chronic unstageable pressure ulcers on Sacrum and Left lower buttocks and angel cleft: Wound consult note reviewed. Wound described in physical exam. Dressing as per wound RN. 5. Essential hypertension -blood pressure on lower side, in low 100. Heart rate in 110s. IV fluid normal saline ordered. On beta-jacqueline. Monitor BP. Hold antihypertensive medication. 6. Hyperlipidemia - Continue statin. 7. DM-2; of unknown control - ADA diet. Fingerstick blood sugars ACHS + scale insulin. Check hemoglobin A1c to objectively evaluate quality of diabetic control. 8. Coronary artery disease; status post CABG (2011) - Noted. 9. History of hepatitis B - Stable. 10. History of renal calculi - Noted no evidence of recurrence at this time. 11. Tobacco abuse - Tobacco cessation will be strongly encouraged. 12. History of pilonidal cyst; status post excision - Noted. 13. OA - Give Tylenol as needed. 14. DVT prophylaxis - Lovenox 40 mg subcu daily. Charges/Coding Visit Charges Inpatient E&M: 04478 Subs Hosp L2
[2023-05-29] MEDS: Potassium Chloride Oral Tablet 20 MEQ 40 MEQ PO (16:12)
[2023-05-29] MEDS: amLODIPine 5 MG Tablet PO (16:13)
--- NOTE | 2023-05-29 16:21 | CASEMGMT ---
Social Work SW did complete the PAS/RR in the HENS system, further review not needed. FOREIGN [place]
[2023-05-29 16:46] LABS: Bedside Glucose 231 mg/dL (74-106)
[2023-05-29] MEDS: Pravastatin 40 MG Tablet PO (21:09)
[2023-05-29] MEDS: Insulin Glargine-YFGN 100 UNIT/ML Pen 45 UNIT SC (21:09)
[2023-05-29 21:43] LABS: Bedside Glucose 230 mg/dL (74-106)
[2023-05-30] VITALS (8 sets, daily range): BP systolic 121–138; BP diastolic 43–50; PULSE 72–80; RESP 18; TEMP 36.8–37.3; O2SAT 95–98; BMI 30.8
[2023-05-30 05:07] LABS: Bedside Glucose 162 mg/dL (74-106)
[2023-05-30] MEDS: Metoprolol Tartrate 50 MG Tablet PO ×2 (08:46→20:18)
[2023-05-30] MEDS: Aspirin E.C. 81 MG Tablet PO (08:46)
[2023-05-30] MEDS: Doxazosin 1 MG Tablet 2 MG PO ×2 (08:46→20:18)
[2023-05-30] MEDS: Losartan Potassium 100 MG Tablet PO (08:46)
[2023-05-30] MEDS: Enoxaparin 40 MG/0.4 ML Syringe SC (08:47)
[2023-05-30] MEDS: Menthol/Lanolin/Calamine/Znox 113 GM Tube 1 APPLIC TOPICAL ×2 (08:48→20:17)
[2023-05-30] MEDS: Cholecalciferol (Vit D3) 125 MCG CAPSULE (5,000 UNITS) 250 MCG PO (08:48)
[2023-05-30 12:00] LABS: Bedside Glucose 262 mg/dL (74-106)
--- NOTE | 2023-05-30 13:38 | PCM.PN.HOSP ---
Reason for Visit Reason for Visit: Diagnoses Pressure ulcer of sacral region, stage 2 (05/27/23) Difficulty in walking, not elsewhere classified (05/27/23) Weakness (05/27/23) Other specified health status (05/27/23) Objective Data Objective Data Vital Signs: Vital Signs Temp Pulse Resp BP Pulse Ox O2 Del Method 98.3 F 72 18 121/50 H 96 Room Air 05/30/23 09:39 05/30/23 09:39 05/30/23 09:39 05/30/23 09:39 05/30/23 09:39 05/30/23 09:39 Oxygen Delivery Method Room Air Weight: 196 lb 10.437 oz Body Mass Index (BMI) 30.8 Intake & Output: Intake and Output for Last 24 Hours 05/28/23 05/29/23 05/30/23 23:59 23:59 23:59 Intake Total 3000 / 3000 650 / 650 120 / 120 Balance 3000 / 3000 650 / 650 120 / 120 Medical Nutrition Assessment Dietitian: Malnutrition Criteria Met Start: 05/28/23 13:27 Freq: Status: Active Protocol: Document 05/28/23 13:27 SLA (Rec: 05/28/23 13:27 SLA Desktop) Nutrition Malnutrition Evidence of Malnutrition Exists Yes Malnutrition (severe): Acute Illness/Injury Evidenced By Suboptimal Energy Intake ( Severe),Weight Loss (Severe) Clinical Problem Acute Disease or Injury Related Malnutrition Etiology related to stuck on floor x 5 days so inadequate energy intake Signs/Symptoms as evidenced by 5% unintended wt loss and pt meeting <75% of est nutritional needs x 5 days Status Active Problem Recommendation Dietitian Recommendations/Changes Continue 1800 marco a Cardiac diet as ordered Will change ensure plus high protein tid w/ medpass to glucerna shake d/t diabetes. Lab / Micro Data 05/28/23 06:30 05/28/23 06:30 Labs: Laboratory Results - last 24 hr 05/29/23 16:02: POC Glucose 231 H 05/29/23 21:08: POC Glucose 230 H 05/30/23 04:22: POC Glucose 162 H 05/30/23 11:38: POC Glucose 262 H Physical Exam Narrative Seen and examined. No acute concern today. Patient was updated about his blood pressure and medications. Patient had concerned that she lost 3 pounds in about 9 months to 1 year. She states it might have been because of medication as her doctor keep on increasing all her meds. When asked about the specific medication she could not tell me. Physical exam General: Alert, Oriented x3, Cooperative HEENT: Atraumatic, PERRLA, EOMI, Normocephalic Oral: No Gingival or Mucosal Lesions/ Ulcerations Neck: Supple, No JVD, Negative Carotid Bruits Chest wall/Lungs: Air entry diminished in bilateral lung bases. No crepitation/rhonchi Cardiovascular: Regular rate, Regular Rhythm, Normal S1, Normal S2, No M/G/R Abdomen: Bowel Sounds Present, Soft, Non Tender, Non-Distended : No dysuria. No renal angle tenderness. No suprapubic tenderness. Extremities: No edema, Capillary Refill Less than 3 Seconds Skin:3 chronic wounds, the first one 2 x 2 cm, unstageable covered with black eschar on the left ischium. Another 1, 2.5 x 8.5 x 0.1 cm over cleft, old pilonidal sinus. Right buttock, small ulcer less than a centimeter, unstageable . Both elbows have an abrasion. Musculoskeletal: No Tenderness to Palpation of Joints or Extremities. Muscle strength 4/5 at knees and hip joints. Neurological: Cranial nerves II-XII grossly intact, DTR 2+/4. No acute focal neurological deficit. Psych/Mental Status: Flat affect Assessment & Plan Assessment/Plan (1) Generalized weakness: (2) Ambulatory dysfunction: (3) Unable to care for self: (4) Stage II pressure ulcer: QUALIFIERS: Pressure injury location: sacral region Qualified Code(s): L89.152 - Pressure ulcer of sacral region, stage 2 PLAN: Plan 67-year-old female was brought to ED after she was found on the FLOOR for 5 days when she got down to get some boxed out from under the bed . Patient AOx3. She was too weak to get up from the floor. Abrasion on the both elbows. 1. Generalized weakness with ambulatory dysfunction causing patient to be stuck on floor 5 days - Admit to general medical floor under observation status. PT/OT and case management consult. Discharge planning 05/28: Patient concerned that she lost 3 pounds in 9 months to 1 year. Home medication reconciliation done. Patient on amlodipine 10 mg daily, metoprolol 50 mg twice daily, losartan 100 mg daily as antihypertensive medications. Patient also on metformin 1000 mg twice daily. Her blood pressure was in 110s today. Amlodipine dose decreased to 5 mg in the evening. Rest medication to continue. BMI is 30.6 kg/m? she might have lost some weight from metformin but as this is good for her diabetes mellitus, and kidney function is normal therefore it is not indicated to decrease. But anyway metformin is on hold during hospital stay. 05/29: Waiting for pre-CERT for long term placement. 2. Mildly elevated creatinine kinase of 359 U/L present on admission due to prolonged time-does not meet criteria for acute rhabdomyolysis. Volume resuscitate. Repeat CK3 169. 3. Mild hypoalbuminemia of 2.6 g/dL present on admission -BMI 29.8 kg/m?. Clinically does not look malnourished. Add Ensure to meals. 4. Chronic unstageable pressure ulcers on Sacrum and Left lower buttocks and cleft: Wound consult note reviewed. Wound described in physical exam. Dressing as per wound RN. 5. Essential hypertension -blood pressure on lower side, in low 100. Heart rate in 110s. IV fluid normal saline ordered. On beta-jacqueline. Monitor BP. Hold antihypertensive medication. 05/29:Blood pressure is controlled. 6. Hyperlipidemia - Continue statin. 7. DM-2; of unknown control - ADA diet. Fingerstick blood sugars ACHS + scale insulin. Check hemoglobin A1c to objectively evaluate quality of diabetic control. 8. Coronary artery disease; status post CABG (2011) - Noted. 9. History of hepatitis B - Stable. 10. History of renal calculi - Noted no evidence of recurrence at this time. 11. Tobacco abuse - Tobacco cessation will be strongly encouraged. 12. History of pilonidal cyst; status post excision - Noted. 13. OA - Give Tylenol as needed. 14. DVT prophylaxis - Lovenox 40 mg subcu daily. Charges/Coding Visit Charges Inpatient E&M: 65000 Subs Hosp L2
[2023-05-30] MEDS: amLODIPine 5 MG Tablet PO (17:26)
[2023-05-30 17:55] LABS: Bedside Glucose 262 mg/dL (74-106)
[2023-05-30] MEDS: 0.9% Saline Lock 10 ML Syringe IV (20:19)
[2023-05-30] MEDS: Pravastatin 40 MG Tablet PO (20:21)
[2023-05-30] MEDS: Insulin Glargine-YFGN 100 UNIT/ML Pen 45 UNIT SC (20:22)
[2023-05-30 22:37] LABS: Bedside Glucose 291 mg/dL (74-106)
[2023-05-31 03:26] VITALS: BMI 31.1
[2023-05-31 05:30] VITALS: BP 129/42; PULSE 71; RESP 18; TEMP 37.1; O2SAT 96
[2023-05-31 06:23] LABS: Bedside Glucose 142 mg/dL (74-106)
--- NOTE | 2023-05-31 07:50 | WOUNDNOTE ---
wound photo: buttocks
[2023-05-31 08:06] LABS: Hematocrit 31.3 % (37-47); Hemoglobin 9.8 g/dL (12.0-15.0); Mean Corp Hgb Conc 31.3 g/dL (32-36); Mean Corpuscular Hgb 27.3 pg (27.0-32.0); Mean Corpuscular Volume 87.2 fL (81-99); Mean Platelet Vol. 10.1 fl (6.2-12.0); Platelet Count 230 K/mm3 (150-450); RBC Distribution Width CV 14.7 % (11.6-14.6); RBC Distribution Width SD 47.5 fl (35.1-43.9); Red Blood Count 3.59 M/mm3 (4.2-5.4)
[2023-05-31 08:21] VITALS: BP 118/42; PULSE 84; RESP 18; TEMP 36.3; O2SAT 98
[2023-05-31 08:27] VITALS: PULSE 84
[2023-05-31] MEDS: Metoprolol Tartrate 50 MG Tablet PO (08:27)
[2023-05-31] MEDS: Aspirin E.C. 81 MG Tablet PO (08:28)
[2023-05-31] MEDS: Cholecalciferol (Vit D3) 125 MCG CAPSULE (5,000 UNITS) 250 MCG PO (08:28)
[2023-05-31] MEDS: Enoxaparin 40 MG/0.4 ML Syringe SC (08:29)
[2023-05-31 08:31] LABS: Anion Gap 1 (5-15); BUN 12 mg/dL (7-18); BUN/Creat Ratio 20.1 RATIO (10-20); Calcium,Total 8.6 mg/dL (8.5-10.1); Chloride 112 mmol/L (98-107); EST Glomerular Filtration Rate 106 mL/min (>60); Est Glom Filt Rate - Afr Amer 129 mL/min (>60); Estimated Creatinine Clearance 77.52 ml/min; Glucose 142 mg/dL (74-106); Potassium 4.2 mmol/L (3.5-5.1); Sodium Level 141 mmol/L (136-145)
[2023-05-31] MEDS: Menthol/Lanolin/Calamine/Znox 113 GM Tube 1 APPLIC TOPICAL (08:31)
--- NOTE | 2023-05-31 11:10 | PCM.TXEXTCAR ---
Diet Diet Order/Speech Therapy: 05/29/23 15:45 Diet: Cardiac - Heart Healthy Dietary Modifications:: Cardiac / Heart Healthy Type of Dietary Supplement:: Glucerna Shake Is pt able to select menu?: Yes Diet Comments: no milk, but chocolate glucerna please w/meals-none on unot Routine Orders/Code Status Code Status: Full Code Wound(s) Left buttock: Wound Type: Pressure Injury Left elbow: Wound Type: Abrasion Right elbow & knee: Wound Type: Abrasion right buttock: Wound Type: Pressure Injury angel cleft: Wound Type: moisture related open area/old pilonidal cyst left ischium: Wound Type: Pressure Injury Therapies Weight Bearing: Full weight bearing Physical Therapy: Eval and Treat Occupational Therapy: Eval and Treat Problem/Diagnosis (1) Generalized weakness: Status: Acute Code(s): R53.1 - Weakness (2) Ambulatory dysfunction: Status: Acute Code(s): R26.2 - Difficulty in walking, not elsewhere classified (3) Unable to care for self: Status: Acute Code(s): Z78.9 - Other specified health status (4) Stage II pressure ulcer: Status: Acute Code(s): L89.92 - Pressure ulcer of unspecified site, stage 2 Plan Patient is a 67-year-old female who presented to [facility] ED on 05/27/2023 after falling at home and being down for 5 days. Hospital course as noted below. Patient discharged to skilled nurse facility in stable condition on 05/30. 1. Generalized weakness with ambulatory dysfunction ? Had fall at home and was stuck on the floor 5 days due to significant weakness. Medical workup was fairly benign. Patient did have mildly low blood pressures, blood pressure medication regimen was adjusted as noted below. PT/OT asked case management followed. Stable for discharge to SNF on 05/30. 2. Essential hypertension ? Home regimen prior to admission of amlodipine 10 mg daily, doxazosin 4 mg daily, losartan 100 mg daily, Toprol 50 mg twice daily. Had consistently low blood pressures while inpatient. Amlodipine and doxazosin discontinued on discharge. Okay to continue home losartan and Toprol. 3. Mildly elevated creatinine kinase ? CK level 359 on admit. Repeat 169 after volume resuscitation. Did not meet criteria for acute rhabdomyolysis. 4. Mild hypoalbuminemia ? Albumin 2.6 on admit. BMI 29, clinically did not look malnourished. Monitor outpatient. 5. Chronic unstageable pressure ulcers on Sacrum and Left lower buttocks and cleft ? Wound care followed. Dressings per wound care recommendations. Chronic medical conditions: ? Hyperlipidemia: Continue home statin. ? Type 2 diabetes mellitus: Okay to resume home insulin detemir 70 units at night and metformin 1000 mg twice daily on discharge. ? CAD s/p CABG: Continue medications as above. ? Tobacco abuse: Encouraged cessation. ? OA: Continue Tylenol as needed. Allergies/Procedures Done in Hospital Allergies lisinopril Adverse Reaction (Verified 05/27/23 19:41) cough Procedures: EKG and - (Chest x-ray, pelvis x-ray) Type of Care/Length of Stay Estimated LOS: Convalescent Care Less Than 30 days Type of Care Needed: Skilled Rehab Potential: Fair Prognosis: Fair Additional Orders/Day of Discharge H&P will serve as current which was dated: 05/27/23 Day of Discharge: 05/31/23 Dietary and Speech Recommendations Dietitian Recommendations/Changes: Continue 1800 marco a Cardiac diet as ordered Will change ensure plus high protein tid w/ medpass to glucerna shake d/t diabetes. Discharge Plan Admission Admit Date/Time: 05/27/23 22:29 Primary Reason for Your Visit: Fall with weakness Attending Provider: Murray Ruff [facility] Providers: Cedric Monroy; Be [place] Discharge Orders/Prescriptions Prescriptions: Continued metformin 1,000 mg tablet 1,000 mg PO BID cholecalciferol (vitamin D3) 250 mcg (10,000 unit) capsule 125 mcg PO DAILY Levemir FlexPen 100 unit/mL (3 mL) insulin pen 70 unit subcut QHS aspirin [Adult Low Dose Aspirin] 81 mg tablet,delayed release (DR/EC) 81 mg PO BID metoprolol tartrate 100 mg tablet 50 mg PO BID losartan 100 mg tablet 100 mg PO QDAY Qty: 90 3RF pravastatin 40 mg tablet 40 mg PO QHS Qty: 90 3RF Discontinued Cardura XL 4 mg tablet extended release 24hr 4 mg PO DAILY Rx Instructions: administer with breakfast amlodipine 10 mg tablet 10 mg PO QDAY Qty: 90 3RF [facility] [Primary Care Provider[facility] - Disposition Disposition (needs filled in before D/C Order can be placed): Shelter Facility (4) Stage II pressure ulcer Qualifiers: Pressure injury location: sacral region Qualified Code(s): L89.152 - Pressure ulcer of sacral region, stage 2
--- NOTE | 2023-05-31 11:23 | PCM.DC.SUM ---
Providers Date of Admission: 05/27/23 Date of Discharge: 05/31/23 Primary Care Physician: [facility] Consultations 05/27/23 22:53 Consult: Onc/Wound/airframe and powerplant technician Routine Comment: Reason for Consult:: Stage II sacral and lower buttock ulcers Reason For Visit: STUCK ON FLOOR FOR 5 DAAYS D/T GENERALIZED Diagnosis Discharge Diagnosis (1) Generalized weakness: Status: Acute Code(s): R53.1 - Weakness (2) Ambulatory dysfunction: Status: Acute Code(s): R26.2 - Difficulty in walking, not elsewhere classified (3) Unable to care for self: Status: Acute Code(s): Z78.9 - Other specified health status (4) Stage II pressure ulcer: Status: Acute Code(s): L89.92 - Pressure ulcer of unspecified site, stage 2 Qualifiers: Pressure injury location: sacral region Qualified Code(s): L89.152 - Pressure ulcer of sacral region, stage 2 Medications at Discharge Home Medications losartan 100 mg tablet 100 mg PO QDAY #90 tabs 05/05/17 pravastatin 40 mg tablet 40 mg PO QHS #90 tabs 05/05/17 aspirin 81 mg tablet,delayed release (Adult Low Dose Aspirin) 81 mg PO BID 05/27/23 cholecalciferol (vitamin D3) 250 mcg (10,000 unit) capsule 125 mcg PO DAILY 05/27/23 insulin detemir U-100 100 unit/mL (3 mL) subcutaneous pen (Levemir FlexPen) 70 unit subcut QHS 05/27/23 metformin 1,000 mg tablet 1,000 mg PO BID 05/27/23 metoprolol tartrate 100 mg tablet 50 mg PO BID 05/28/23 Hospital Course Operations None Procedures EKG and - (Chest x-ray, pelvis x-ray) Summary of Care Provided Minutes Spent on Discharge: 35 Hospital Course: Patient is a 67-year-old female who presented to [facility] ED on 05/27/2023 after falling at home and being down for 5 days. Hospital course as noted below. Patient discharged to skilled nurse facility in stable condition on 05/30. 1. Generalized weakness with ambulatory dysfunction ? Had fall at home and was stuck on the floor 5 days due to significant weakness. Medical workup was fairly benign. Patient did have mildly low blood pressures, blood pressure medication regimen was adjusted as noted below. PT/OT asked case management followed. Stable for discharge to SNF on 05/30. 2. Essential hypertension ? Home regimen prior to admission of amlodipine 10 mg daily, doxazosin 4 mg daily, losartan 100 mg daily, Toprol 50 mg twice daily. Had consistently low blood pressures while inpatient. Amlodipine and doxazosin discontinued on discharge. Okay to continue home losartan and Toprol. 3. Mildly elevated creatinine kinase ? CK level 359 on admit. Repeat 169 after volume resuscitation. Did not meet criteria for acute rhabdomyolysis. 4. Mild hypoalbuminemia ? Albumin 2.6 on admit. BMI 29, clinically did not look malnourished. Monitor outpatient. 5. Chronic unstageable pressure ulcers on Sacrum and Left lower buttocks and angel cleft ? Wound care followed. Dressings per wound care recommendations. Chronic medical conditions: ? Hyperlipidemia: Continue home statin. ? Type 2 diabetes mellitus: Okay to resume home insulin detemir 70 units at night and metformin 1000 mg twice daily on discharge. ? CAD s/p CABG: Continue medications as above. ? Tobacco abuse: Encouraged cessation. ? OA: Continue Tylenol as needed. Total clinical time spent by myself addressing the patient's medical issues, reviewing all the data, and collaborating with patient's care team: 35 minutes. Physical Exam Narrative Physical exam General: Alert, Oriented x3, Cooperative HEENT: Atraumatic, PERRLA, EOMI, Normocephalic Oral: No Gingival or Mucosal Lesions/ Ulcerations Neck: Supple, No JVD, Negative Carotid Bruits Chest wall/Lungs: Air entry diminished in bilateral lung bases. No crepitation/rhonchi Cardiovascular: Regular rate, Regular Rhythm, Normal S1, Normal S2, No M/G/R Abdomen: Bowel Sounds Present, Soft, Non Tender, Non-Distended : No dysuria. No renal angle tenderness. No suprapubic tenderness. Extremities: No edema, Capillary Refill Less than 3 Seconds Skin:3 chronic wounds, the first one 2 x 2 cm, unstageable covered with black eschar on the left ischium. Another 1, 2.5 x 8.5 x 0.1 cm over cleft, old pilonidal sinus. Right buttock, small ulcer less than a centimeter, unstageable . Both elbows have an abrasion. Musculoskeletal: No Tenderness to Palpation of Joints or Extremities. Muscle strength 4/5 at knees and hip joints. Neurological: Cranial nerves II-XII grossly intact, DTR 2+/4. No acute focal neurological deficit. Psych/Mental Status: Flat affect Medical Records Data Medical Nutrition Assessment Dietitian: Malnutrition Criteria Met Start: 05/28/23 13:27 Freq: Status: Active Protocol: Document 05/28/23 13:27 SLA (Rec: 05/28/23 13:27 SLA Desktop) Nutrition Malnutrition Evidence of Malnutrition Exists Yes Malnutrition (severe): Acute Illness/Injury Evidenced By Suboptimal Energy Intake ( Severe),Weight Loss (Severe) Clinical Problem Acute Disease or Injury Related Malnutrition Etiology related to stuck on floor x 5 days so inadequate energy intake Signs/Symptoms as evidenced by 5% unintended wt loss and pt meeting <75% of est nutritional needs x 5 days Status Active Problem Recommendation Dietitian Recommendations/Changes Continue 1800 marco a Cardiac diet as ordered Will change ensure plus high protein tid w/ medpass to glucerna shake d/t diabetes. Weight / BMI Weight Weight: 90 kg Body Mass Index (BMI) 31.1 ABG / Lab / Microbiology Data 05/31/23 07:59 05/31/23 07:59 Laboratory: Laboratory Results - last 24 hr 05/30/23 11:38: POC Glucose 262 H 05/30/23 17:21: POC Glucose 262 H 05/30/23 20:07: POC Glucose 291 H 05/31/23 06:03: POC Glucose 142 H 05/31/23 07:59: WBC 9.0, RBC 3.59 L, Hgb 9.8 L, Hct 31.3 L, MCV 87.2, MCH 27.3, MCHC 31.3 L, RDW Std Deviation 47.5 H, RDW Coeff of Davian 14.7 H, Plt Count 230, MPV 10.1, Sodium 141, Potassium 4.2, Chloride 112 H, Carbon Dioxide 28.0, Anion Gap 1 L, BUN 12, Creatinine 0.60, Estim Creat Clear Calc 77.52, Est GFR (MDRD) Af Amer 129, Est GFR (MDRD) Non-Af 106, BUN/Creatinine Ratio 20.1 H, Glucose 142 H, Calcium 8.6 Meaningful Use Info Meaningful Use Diagnoses (Choose all that apply): None applicable Discharge Plan Admission Admit Date/Time: 05/27/23 22:29 Primary Reason for Your Visit: Fall with weakness Attending Provider: Murray Ruff [facility] Providers: Cedric Monroy; Be [place] Discharge Orders/Prescriptions Prescriptions: Continued metformin 1,000 mg tablet 1,000 mg PO BID cholecalciferol (vitamin D3) 250 mcg (10,000 unit) capsule 125 mcg PO DAILY Levemir FlexPen 100 unit/mL (3 mL) insulin pen 70 unit subcut QHS aspirin [Adult Low Dose Aspirin] 81 mg tablet,delayed release (DR/EC) 81 mg PO BID metoprolol tartrate 100 mg tablet 50 mg PO BID losartan 100 mg tablet 100 mg PO QDAY Qty: 90 3RF pravastatin 40 mg tablet 40 mg PO QHS Qty: 90 3RF Discontinued Cardura XL 4 mg tablet extended release 24hr 4 mg PO DAILY Rx Instructions: administer with breakfast amlodipine 10 mg tablet 10 mg PO QDAY Qty: 90 3RF Referrals / Follow Up: [facility] [Primary Care Provider] - Disposition Disposition (needs filled in before D/C Order can be placed): Shelter Facility Charges/Coding Visit Charges Inpatient E&M: 67747 Disch Hosp >30min
--- NOTE | 2023-05-31 11:35 | PHA.DC.MR.R ---
Pharmacy [place] Med Reconciliation Pharmacy Service has performed discharge medication reconciliation for this patient. The patient's discharge medication list was reviewed for discrepancies and discrepancies were resolved. Medications at Discharge Home Medications losartan 100 mg tablet 100 mg PO QDAY #90 tabs 05/05/17 pravastatin 40 mg tablet 40 mg PO QHS #90 tabs 05/05/17 aspirin 81 mg tablet,delayed release (Adult Low Dose Aspirin) 81 mg PO BID 05/27/23 cholecalciferol (vitamin D3) 250 mcg (10,000 unit) capsule 125 mcg PO DAILY 05/27/23 insulin detemir U-100 100 unit/mL (3 mL) subcutaneous pen (Levemir FlexPen) 70 unit subcut QHS 05/27/23 metformin 1,000 mg tablet 1,000 mg PO BID 05/27/23 metoprolol tartrate 100 mg tablet 50 mg PO BID 05/28/23
[2023-05-31 11:37] LABS: Bedside Glucose 285 mg/dL (74-106)
--- NOTE | 2023-05-31 13:01 | CASEMGMT ---
Social Work Precert has been obtained for pt to discharge to [facility]. Physician updated and pt is ready for dc today. PASSRR has been completed and sent along with discharge orders to [facility] via [facility]. Transportation arranged with [facility] for 3pm potato picker via Wheelchair van. Pt updated and agreeable to dc plan. Bedside nurse and [facility] notified of dc time. Disposition: [facility], skilled level of care RENETTA Fleming
[2023-05-31 13:43] VITALS: BP 126/45; PULSE 82; RESP 18; TEMP 37.2; O2SAT 94
== END 2023-05-31 15:14 | disposition skilled nursing facility (03) ==
LOC: ED 22:32 → MS3 23:13
PROVIDERS: Internal Medicine; Nurse Practitioner; Admitting Provider Internal Medicine; Emergency Provider Emergency Medicine; Visit Provider Hospitalist
DX: R53.1 Weakness (principal); L89.152 Pressure ulcer of sacral region, stage 2; L89.322 Pressure ulcer of left buttock, stage 2; E11.9 Type 2 diabetes mellitus without complications; Z79.4 Long term (current) use of insulin; E78.5 Hyperlipidemia, unspecified; E88.09 Other disorders of plasma-protein metabolism, not elsewhere classified; R26.2 Difficulty in walking, not elsewhere classified; I10 Essential (primary) hypertension; M19.90 Unspecified osteoarthritis, unspecified site; F17.210 Nicotine dependence, cigarettes, uncomplicated; Z79.899 Other long term (current) drug therapy; Z79.82 Long term (current) use of aspirin; Z79.84 Long term (current) use of oral hypoglycemic drugs; S50.311A Abrasion of right elbow, initial encounter; S50.312A Abrasion of left elbow, initial encounter; X58.XXXA Exposure to other specified factors, initial encounter; Y93.89 Activity, other specified; R62.7 Adult failure to thrive; I25.10 Atherosclerotic heart disease of native coronary artery without angina pectoris; Z95.0 Presence of cardiac pacemaker; Z86.19 Personal history of other infectious and parasitic diseases
CPT/HCPCS: 36415; 71045; 72170; 80048; 80053; 81001; 82550; 82962; 83605; 83735; 84100; 84134; 84443; 84484; 85025; 85027; 93005; 96360; 96361; 96372; 97110; 97116; 97162; 97166; 97530; 97535; 97802; 99221; 99285; J7030; A4216; G0378

== ENCOUNTER 2023-09-22 11:46 | Observation (INO) | payer MEDICARE, SELFPAY ==
[2023-09-22] VITALS (8 sets, daily range): BP systolic 124–144; BP diastolic 55–68; PULSE 94–122; RESP 16–19; TEMP 36.2–36.8; O2SAT 96–99; BMI 29.5; BMI 29.9
--- NOTE | 2023-09-22 12:38 | EKG12_ITS ---
Test Reason : Blood Pressure : / mmHG Vent. Rate : 110 BPM Atrial Rate : 110 BPM P-R Int : 146 ms QRS Dur : 078 ms QT Int : 328 ms P-R-T Axes : 086 084 073 degrees QTc Int : 443 ms Sinus tachycardia Possible Left atrial enlargement Nonspecific T wave abnormality Abnormal ECG Confirmed by JOEY WATSON, KAILA ([id number]), film and video editor NALDO AMEZCUA ([id number]) on 09/27/2023 8:41:25 AM Referred By: Confirmed By:SOLE COOK MD
--- NOTE | 2023-09-22 12:38 | RAD_ITS ---
STUDY: X-RAY CHEST REASON FOR EXAM: Female, 67 years old. Weakness TECHNIQUE: Single AP portable view of the chest. COMPARISON: Comparison is made with prior study dated May 27, 2023. FINDINGS: EKG electrodes are seen. The lungs are clear and expanded. There is no demonstrated pleural abnormality. Sternal cerclage wires are present from a prior sternotomy. Normal mediastinum and felicia. Normal visualized pulmonary arteries. There is atherosclerotic calcification of the aortic arch with tortuosity. There are diffuse degenerative changes of the visualized thoracic spine. Normal visualized ribs, clavicles, and shoulders. There is no demonstrated abnormality of the visualized soft tissue structures of the upper abdomen. RAD/Chest 1 View (Portable) IMPRESSION: No acute abnormality is seen. Electronically Signed: Vega Guillaume MD at 13:34 EDT ,
--- NOTE | 2023-09-22 12:41 | EDS_ITS ---
HPI History of Present Illness Chief Complaint: Weakness Detail of Chief Complaint: Unable to get out of her bathtub. Informant: patient Onset/Context/Timing Onset: Days Context: Gradual Onset Timing: Continuous Current Severity: Moderate Maximum Severity: Moderate Narrative Narrative: 67-year-old female history of diabetes and hypertension. Prior bypass surgery. Since she underventilated at least 3 days ago she had many maybe longer she drinks water to get out she was just too weak to get herself out of the bathtub. She said she did not fall where she can get injured. She tried multiple times to get out and was just too weak. This is actually happened to her in the past where she developed rhabdomyolysis and had to be admitted to the hospital. Said prior to getting in the bathtub she felt fine. She denies any recent illness, vomiting or diarrhea. No fever. Her neighbor eventually heard her calling for help and called the paramedics. Prior similar symptoms: Yes Recent Illness/Hospitalization: No PFSH [facility] Medical History Pilonidal cyst Kidney calculi Diabetes Hepatitis Former smoker Hypertension Home Medications ?Medication ?Instructions ?Recorded ?Last Taken ?Type losartan 100 mg tablet 100 mg PO QDAY #90 tabs 05/05/17 09/19/23 Rx pravastatin 40 mg tablet 40 mg PO QHS #90 tabs 05/05/17 09/19/23 Rx aspirin 81 mg tablet,delayed 81 mg PO BID 05/27/23 09/19/23 History release (Adult Low Dose Aspirin) cholecalciferol (vitamin D3) 250 125 mcg PO DAILY 05/27/23 09/19/23 History mcg (10,000 unit) capsule insulin detemir U-100 100 unit/mL 70 unit subcut QHS 05/27/23 09/19/23 History (3 mL) subcutaneous pen (Levemir FlexPen) metformin 1,000 mg tablet 1,000 mg PO BID 05/27/23 09/19/23 History amlodipine 10 mg tablet 10 mg PO DAILY 09/22/23 09/19/23 History doxazosin 4 mg tablet 4 mg PO DAILY 09/22/23 09/19/23 History metoprolol tartrate 50 mg tablet 50 mg PO BID 09/22/23 09/19/23 History Allergy/AdvReac Type Severity Reaction Status Date / Time lisinopril AdvReac cough Verified 09/22/23 11:53 Surgical History H/O section S/P triple vessel bypass Social History Smoking Status: Former smoker ROS ROS ED ROS Narrative Generalized weakness. Denies recent illness. Constitutional Constitutional ED: Denies chills or fever(s) Eyes Eyes: Denies blurry vision ENT ENT ED: Denies ear pain Cardiovascular Cardiovascular: Denies chest pain Respiratory/Chest Respiratory/Chest: Denies cough or dyspnea Gastrointestinal Gastrointestinal: Denies abdominal pain, diarrhea, nausea or vomiting Genitourinary Genitourinary ED: Denies dysuria or hematuria Musculoskeletal Musculoskeletal: Denies arthralgias or back pain Integumentary Denies abscess or Abrasions Neurologic Neurologic: Denies headache(s) Psychiatric Psychiatric: Denies anxiety or depression Endocrine Endocrinology: Denies cold intolerance Hematologic/Lymphatic Hematologic/Lymphatic: Reports none Allergic/Immunologic Allergic/Immunologic ED: Denies mouth swelling, tongue swelling or urticaria EXAM Physical Exam Narrative Exam Narrative: Well-appearing 67-year-old female. Sitting upright in bed. Vital signs she is tachycardic at 122. She does not look septic or toxic. Most likely mildly dehydrated. H EENT exam pupils round react to light. Mildly dry mucous membranes. No signs of trauma to her face or scalp. Nontender. Neck nontender. Lungs clear to auscultation bilaterally. Heart tachycardic rate of 120 no murmur. Chest wall ribs nontender. Abdomen soft nontender. Pelvic gir dle intact. Nontender. 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 Dorsi plantarflexion intact. Normal range of motion no deformities. Nontender. She does have a bruise on the inside of her right arm. Neurologically she is awake and alert no focal motor deficits. Answering questions and following commands. Const Vital Signs: 09/22/23 11:47 09/22/23 11:51 09/22/23 13:46 Temperature 97.8 F Temperature Source Temporal Pulse Rate 122 H 104 H Respiratory Rate 19 H 19 H Respiratory Effort Normal Non-Labored Respiratory Pattern Normal Blood Pressure 137/62 H 144/60 H Blood Pressure Mean 87 88 Pulse Ox 96 99 Oxygen Delivery Method Room Air Room Air Positive well nourished and well developed; Negative for cachectic, contractures or unkempt General Appearance ED: well developed and NAD; Negative for unkempt, cachectic, contractures, cyanotic, diaphoretic or pallor Nutritional Appearance: Negative for cachectic HEENT Reports dry mucous membranes Negative for trauma or tenderness Mouth ED: Yes dry mucous membranes Mouth: dry mucous membranes Eyes PERRL and EOMs intact bilaterally General Eye ED: Negative for pale conjunctiva or scleral icterus Neck no lymphadenopathy, supple and no JVD General: Negative for tenderness or other Lymph Lymphatic: Negative for other Chest Wall inspection of chest normal and palpation of chest normal Chest: Negative for other Resp normal respiratory effort and clear to auscultation bilaterally Effort and Inspection: Negative for retractions or pain with movement Auscultation: Negative for rales, rhonchi, wheezes or diminished lung sounds Cardio regular rhythm, S1 normal heart sound, S2 normal heart sound and no murmurs; Negative for regular rate Rate: tachycardic GI normal to inspection, nondistended, normoactive bowel sounds, non-tender, non- distended and no masses Inspection: Negative for abdominal distention Auscultation: normoactive bowel sounds Palpation: soft; Negative for tender, guarding or rebound tenderness present Back/Spine no CVA tenderness General Back: Negative for CVA tenderness Cervical Spine: Negative for cervical spine tenderness Thoracic Spine / Upper Back: Negative for thoracic spinal tenderness or paraspinal muscle tenderness Extremity normal to inspection Extremity Narrative: Bruise right bicep and upper arm. General Extremety ED: Negative for edema or tenderness General Extremity: Negative for edema Neuro oriented x3 and CN's II-XII intact bilaterally Sensorium / Orientation: alert; Negative for orientation impaired, lethargic or stuporous Motor Exam: strength 5/5 throughout; Negative for general weakness or strength abnormal Psych mental status grossly normal Appearance: Negative for unkempt Attitude: No agitated Mood & Affect: Negative for depressed, anxious or tearful Skin no rashes or lesions noted and no wounds General Skin Exam: Negative for jaundice or pallor Lesions: No lesion noted Rashes: No rashes noted Trauma: Negative for abrasion Wounds: Negative for wounds noted MDM MDM MDM Narrative Medical decision making narrative: 59-year-old female too weak to get out of her bathtub has been laying there at least 3 days. Screening labs and CPK will be obtained for possible rhabdomyolysis. IV fluids times a liter. History & Record Review Discussion w/independent historian: Patient Additional record(s) reviewed:: Prior inpatient record, Prior outpatient record, Prior ED visit and Prior labs Lab Data Attestation: I reviewed the patient's lab results. Lab results narrative: CBC shows a white 11.9. H&H 11.5 and 36. Platelets 262. Platelets 262. Consistent with prior labs. Consistent with prior labs. Consistent with prior labs. Chemistry showing gap of 10. Normal BUN and creatinine. Chemistries u nremarkable. CMP unremarkable. CPK elevated at 992. UA shows ketones c/w dehydration. No UTI. Labs: Laboratory Results - last 24 hr 09/22/23 09/22/23 12:50 13:44 WBC 11.9 H RBC 4.15 L Hgb 11.5 L Hct 36.0 L MCV 86.7 MCH 27.7 MCHC 31.9 L RDW Std Deviation 44.9 H RDW Coeff of Davian 14.1 Plt Count 262 MPV 10.0 Immature Gran % (Auto) 1.300 H Neut % (Auto) 74.8 H Lymph % (Auto) 11.4 L Mckinley % (Auto) 10.7 H Eos % (Auto) 1.3 Baso % (Auto) 0.5 Absolute Neuts (auto) 8.9 H Absolute Lymphs (auto) 1.36 Nucleated RBC % 0 Sodium 139 Potassium 3.9 Chloride 109 H Carbon Dioxide 20.0 L Anion Gap 10 BUN 12 Creatinine 0.73 Estim Creat Clear Calc 75.61 Est GFR (MDRD) Af Amer 102 Est GFR (MDRD) Non-Af 85 BUN/Creatinine Ratio 16.5 Glucose 196 H Calcium 8.8 Total Bilirubin 0.90 AST 36 ALT 25 Alkaline Phosphatase 62 Total Creatine Kinase 992 H Total Protein 6.9 Albumin 2.7 L Globulin 4.2 Albumin/Globulin Ratio 0.6 L Urine Color Yellow Urine Clarity Sl. Cloudy Urine pH 5.0 Ur Specific [place] 1.020 Urine Protein 100 H Urine Glucose (UA) 50 H Urine Ketones 150 A* Urine Occult Blood 25 H Urine Nitrite Negative Urine Bilirubin Negative Urine Urobilinogen Normal Ur Leukocyte Esterase Negative Urine RBC 0 SEEN Urine WBC 0 SEEN Ur Squamous Epith Cells 0-5 SEEN Urine Bacteria 0 SEEN Urine Mucus 0 SEEN Radiography Chest X-Ray - ED: 1 View, Read by ED Physician, Read by Radiologist, Normal, Heart, Lungs, Mediastinum, Bony Structures, No Acute Disease and Chronic Changes Diagnostic Testing: Clinical Impression(s) from Imaging Studies Chest X-Ray 09/22/23 12:38 IMPRESSION: No acute abnormality is seen. Electronically Signed: Vega Guillaume MD at 13:34 EDT , CXR negative per my interpretation. Rhythm Strip Rhythm Strip: Sinus Tach Rate: 110 Ectopy: None EKG Initial EKG: Attestation: I personally reviewed and interpreted this EKG as follows: Interpretation: No Acute Injury Pattern and Sinus Tachycardia Comments: Sinus tachy at 110. No STEMI. Discharge Plan Triage Chief Complaint: Weakness ED Provider: Manpreet Adames Dx/Rx/DC Orders Prescriptions: No Action metformin 1,000 mg tablet 1,000 mg PO BID cholecalciferol (vitamin D3) 250 mcg (10,000 unit) capsule 125 mcg PO DAILY Levemir FlexPen 100 unit/mL (3 mL) insulin pen 70 unit subcut QHS aspirin [Adult Low Dose Aspirin] 81 mg tablet,delayed release (DR/EC) 81 mg PO BID amlodipine 10 mg tablet 10 mg PO DAILY metoprolol tartrate 50 mg tablet 50 mg PO BID doxazosin 4 mg tablet 4 mg PO DAILY losartan 100 mg tablet 100 mg PO QDAY Qty: 90 3RF pravastatin 40 mg tablet 40 mg PO QHS Qty: 90 3RF Primary Care Provider: [facility] Aparna Lafleur Referrals: [facility] Aparna Lafleur [Primary Care Provider] - Print Language: Sami
[2023-09-22] MEDS: 0.9% Normal Saline (1000mL) 1,000 ML 1000 ML IV (13:04)
[2023-09-22 13:07] LABS: Absolute Lymphocyte Count 1.36 X10^3/uL (0.83-4.51); Absolute Neutrophil Count 8.9 X10^3/uL (2.0-7.7); Basophil# 0.06 X10^3/uL; Basophil% 0.5 % (0-1); Eosinophil# 0.15 X10^3/uL; Eosinophils% 1.3 % (0-5); Hemoglobin 11.5 g/dL (12.0-15.0); Lymphocyte # 1.36 X10^3/ul (0.83-4.51); Lymphocyte % 11.4 % (19-41); Mean Corp Hgb Conc 31.9 g/dL (32-36); Mean Corpuscular Hgb 27.7 pg (27.0-32.0); Mean Corpuscular Volume 86.7 fL (81-99); Monocyte# 1.28 X10^3/uL; Monocyte% 10.7 % (0-10); NRBC Flagged by Analyzer 0 % (0-5); Neutrophil # 8.94 X10^3/uL (2.7-7.7); Neutrophil % 74.8 % (47-70); Platelet Count 262 K/mm3 (150-450); RBC Distribution Width CV 14.1 % (11.6-14.6); RBC Distribution Width SD 44.9 fl (35.1-43.9); Red Blood Count 4.15 M/mm3 (4.2-5.4); White Blood Count 11.9 K/mm3 (4.4-11.0)
[2023-09-22 13:36] LABS: ALB/GLOB Ratio 0.6 RATIO (0.9-2.4); AST(SGOT) 36 U/L (15-37); Alanine Aminotransfer ALT/SGPT 25 U/L (13-56); Albumin, Serum 2.7 g/dL (3.2-5.0); Alkaline Phosphatase 62 U/L (45-117); Anion Gap 10 (5-15); BUN 12 mg/dL (7-18); BUN/Creat Ratio 16.5 RATIO (10-20); CPK Total, Creatine Kinase 992 U/L (26-192); Calcium,Total 8.8 mg/dL (8.5-10.1); Chloride 109 mmol/L (98-107); Creatinine, Serum 0.73 mg/dL (0.55-1.02); EST Glomerular Filtration Rate 85 mL/min (>60); Est Glom Filt Rate - Afr Amer 102 mL/min (>60); Estimated Creatinine Clearance 75.61 ml/min; Globulin 4.2 g/dL (2.2-4.2); Glucose 196 mg/dL (74-106); Potassium 3.9 mmol/L (3.5-5.1); Protein, Total 6.9 g/dL (6.4-8.2); Sodium Level 139 mmol/L (136-145)
[2023-09-22 13:49] LABS: Bacteria 0 SEEN /hpf (None Seen); Mucous, Urine 0 SEEN /hpf (<or=2+); Red Blood Cells-Urine 0 SEEN /hpf (0-5); White Blood Cells 0 SEEN /hpf (0-5)
[2023-09-22 13:53] LABS: Color, Urine Yellow (Yellow); Glucose, Dipstick 50 mg/dl (Normal); Leukocyte Esterase-Dipstick Negative /ul (Negative); Nitrite-Dipstick Negative (Negative); Occult Blood-Urine 25 /ul (Negative); Protein-Dipstick 100 mg/dl (Negative); Urine Bilirubin Dipstick Negative (Negative); Urine Clarity Sl. Cloudy (Clear); Urine Urobilinogen Normal (Normal)
[2023-09-22 13:55] LABS: Ketone-Dipstick 150 mg/dl (Negative)
[2023-09-22 14:02] LABS: Squamous Epithelial Cells - UA 0-5 SEEN /hpf (5-10)
--- NOTE | 2023-09-22 14:48 | NURSING ---
MED SURG OBS TERELETSKY WEAKNESS, UNABLE TO WALK, DEHYDRATION
--- NOTE | 2023-09-22 16:20 | HP.PCM.HOS_ITS ---
HPI - General General Date of Admission: 09/22/23 Date of Service: 09/22/23 Chief Complaint: Debility, generalized weakness HPI Narrative SAMINA HANCOCK, is a 67 F who presents to the emergency room at [facility] after being found in her bathtub at home, patient stated that she has been in the bathtub for an unknown length of time, she was unable to get out of the bathtub on her own and bruised her right arm. Patient lives alone. Workup in the emergency room included a CBC which showed an elevated white blood cell count 11.9, hemoglobin was 11.5, chemistry profile was remarkable for glucose of 196, patient CPK was 992. Patient does not know which day she was stuck in her bathtub, she thinks it may have been Wednesday. Patient is a poor informant [facility], she will be seen by PT and OT, she may require short-term stay in a penitentiary facility. Patient states she was in a fdc in May under similar circumstances for generalized debility and weakness. [facility] Medical History Pilonidal cyst Kidney calculi Diabetes Hepatitis Former smoker Hypertension Home Medications ?Medication ?Instructions ?Recorded ?Last Taken ?Type losartan 100 mg tablet 100 mg PO QDAY #90 tabs 05/05/17 09/19/23 Rx pravastatin 40 mg tablet 40 mg PO QHS #90 tabs 05/05/17 09/19/23 Rx aspirin 81 mg tablet,delayed 81 mg PO BID 05/27/23 09/19/23 History release (Adult Low Dose Aspirin) cholecalciferol (vitamin D3) 250 125 mcg PO DAILY 05/27/23 09/19/23 History mcg (10,000 unit) capsule insulin detemir U-100 100 unit/mL 70 unit subcut QHS 05/27/23 09/19/23 History (3 mL) subcutaneous pen (Levemir FlexPen) metformin 1,000 mg tablet 1,000 mg PO BID 05/27/23 09/19/23 History amlodipine 10 mg tablet 10 mg PO DAILY 09/22/23 09/19/23 History doxazosin 4 mg tablet 4 mg PO DAILY 09/22/23 09/19/23 History metoprolol tartrate 50 mg tablet 50 mg PO BID 09/22/23 09/19/23 History Allergy/AdvReac Type Severity Reaction Status Date / Time lisinopril AdvReac cough Verified 09/22/23 11:53 Surgical History H/O section S/P triple vessel bypass Social History Smoking Status: Former smoker ROS Constitutional Constitutional: Reports weakness; Denies anorexia, change in weight, chills, fever(s) or night sweats Eyes Eyes: Denies blurry vision, change in vision, discharge from eye(s) or eye pain Cardiovascular Cardiovascular: Denies chest pain, claudication, dyspnea on exertion, edema or palpitations Respiratory/Chest Respiratory/Chest: Denies cough, hemoptysis, shortness of breath at rest or shortness of breath with exertion Gastrointestinal Gastrointestinal: Denies abdominal pain, constipation, diarrhea, hematemesis, hematochezia, melena, nausea or vomiting Genitourinary Genitourinary: Denies dysuria, hematuria, urinary frequency, urinary hesitancy, urinary incontinence or urinary urgency Musculoskeletal Musculoskeletal: Denies back pain, joint pain, joint stiffness, joint swelling, myalgias or neck pain Neurologic Neurologic: Denies abnormal gait, abnormal speech, dizziness, focal weakness, headache(s), loss of vision, numbness, other visual disturbances, paresthesias, syncope or tingling Psychiatric Psychiatric: Denies anxiety, cognitive impairment, depression, irritability, mood swings or suicidal ideation Endocrine Endocrinology: Denies change in body appearance, cold intolerance, excessive sweating, heat intolerance, polydipsia or polyuria Hematologic/Lymphatic Hematologic/Lymphatic: Denies none, anemia, easy bleeding, easy bruising or lymphadenopathy Allergic/Immunologic Allergic/Immunologic: Denies rhinitis, urticaria, eczemia or asthma Vital Signs Vital Signs Vital Signs: 09/22/23 11:47 09/22/23 11:51 09/22/23 13:46 Temperature 97.8 F Temperature Source Temporal Pulse Rate 122 H 104 H Respiratory Rate 19 H 19 H Respiratory Effort Normal Non-Labored Respiratory Pattern Normal Blood Pressure 137/62 H 144/60 H Blood Pressure Mean 87 88 Pulse Ox 96 99 Oxygen Delivery Method Room Air Room Air 09/22/23 15:00 Temperature Temperature Source Pulse Rate 120 H Respiratory Rate Respiratory Effort Respiratory Pattern Blood Pressure 141/68 H Blood Pressure Mean 92 Pulse Ox Oxygen Delivery Method Weight Weight: 85.5 kg Body Mass Index (BMI) 29.5 Physical Exam Const alert, oriented x3, no apparent distress and healthy appearing Constitutional Narrative: Patient appears older than her stated age General Appearance: cooperative, well kempt and well developed Orientation / Consciousness: awake, oriented to person, oriented to place and oriented to time HEENT normocephalic, head/scalp atraumatic, hearing grossly normal bilaterally and moist oral mucous membranes Eyes PERRL, EOMs intact bilaterally and conjunctivae normal Neck supple, no JVD, thyroid normal and no carotid bruits General: trachea midline Resp normal respiratory effort, no retractions, no use of accessory muscles and clear to auscultation bilaterally Auscultation: Negative for rales, rhonchi or wheezes Cardio regular rate, regular rhythm, S1 normal heart sound, S2 normal heart sound, no murmurs, no rub and no gallops GI normal to inspection, nondistended, normoactive bowel sounds, soft to palpation, non-tender and non-distended Extremity Extremity Narrative: Patient has an area of ecchymosis on the inner aspect of her right upper arm Skin no rashes or lesions noted General Skin Exam: no breakdown Neuro oriented x3, CN's II-XII intact bilaterally, no focal motor deficits and no sensory deficits noted Sensorium / Orientation: awake and alert Speech: speech normal Psych affect normal Results Lab / Micro Data 09/22/23 12:50 09/22/23 12:50 Labs: Laboratory Results - last 24 hr 09/22/23 12:50: WBC 11.9 H, RBC 4.15 L, Hgb 11.5 L, Hct 36.0 L, MCV 86.7, MCH 27.7, MCHC 31.9 L, RDW Std Deviation 44.9 H, RDW Coeff of Davian 14.1, Plt Count 262, MPV 10.0, Immature Gran % (Auto) 1.300 H, Neut % (Auto) 74.8 H, Lymph % (Auto) 11.4 L, [place] % (Auto) 10.7 H, Eos % (Auto) 1.3, Baso % (Auto) 0.5, A bsolute Neuts (auto) 8.9 H, Absolute Lymphs (auto) 1.36, Nucleated RBC % 0, Sodium 139, Potassium 3.9, Chloride 109 H, Carbon Dioxide 20.0 L, Anion Gap 10, BUN 12, Creatinine 0.73, Estim Creat Clear Calc 75.61, Est GFR (MDRD) Af Amer 102, Est GFR (MDRD) Non-Af 85, BUN/Creatinine Ratio 16.5, Glucose 196 H, Calcium 8.8, Total Bilirubin 0.90, AST 36, ALT 25, Alkaline Phosphatase 62, Total Creatine Kinase 992 H, Total Protein 6.9, Albumin 2.7 L, Globulin 4.2, A lbumin/Globulin Ratio 0.6 L 09/22/23 13:44: Urine Color Yellow, Urine Clarity Sl. Cloudy, Urine pH 5.0, Ur Specific [place] 1.020, Urine Protein 100 H, Urine Glucose (UA) 50 H, Urine Ketones 150 A*, Urine Occult Blood 25 H, Urine Nitrite Negative, Urine Bilirubin Negative, Urine Urobilinogen Normal, Ur Leukocyte Esterase Negative, Urine RBC 0 SEEN, Urine WBC 0 SEEN, Ur Squamous Epith Cells 0-5 SEEN, Urine Bacteria 0 SEEN, Urine Mucus 0 SEEN Rhythm Strip Rhythm Strip: Sinus Tach Rate: 110 Ectopy: None Imaging Radiology Impression Chest X-Ray 09/22/23 12:38 IMPRESSION: No acute abnormality is seen. Electronically Signed: Vega Guillaume MD at 13:34 EDT Reading Location ID and State: [address] [place] [address] , Service support , Assessment & Plan Assessment/Plan (1) Weakness: PLAN: Plan 1. Generalized debility secondary to multiple medical problems-patient will be placed in observation status on [facility] 3, she will be seen by PT and OT, she may require a short stay in a penitentiary facility for rehab services. #2 type 2 diabetes-patient takes 70 units of basal insulin at night-her blood sugar is minimally elevated at this time and I assume she has not been taking her insulin for at least a couple of days, I have decided not to place her on any basal insulin, she will receive sliding scale insulin and fingerstick blood sugars will be performed. #3 essential hypertension-the patient will remain on her present medications #4 hyperlipidemia-patient is currently on a statin Total clinical time spent by myself addressing the patient's medical issues, reviewing all of her data, and collaborating with patient's care team: 40 minutes Charges/Coding Visit Charges Inpatient E&M: 30336 Init Hosp L1
--- NOTE | 2023-09-22 19:07 | NURSING ---
990.00 edmonds counted out with pt and pt signed valuable envelope slip. process explained with pt. money placed in envolope and sealed. plasterer tender [place] took down to hospital see wheeler for safe.
[2023-09-22] MEDS: Heparin Injection (Vial) 5,000 UNIT/ML VIAL 5000 UNIT SC (20:46)
[2023-09-22] MEDS: Metoprolol Tartrate 50 MG Tablet PO (20:48)
[2023-09-22] MEDS: Pravastatin 40 MG Tablet PO (20:48)
[2023-09-22] MEDS: Aspirin E.C. 81 MG Tablet PO (20:48)
[2023-09-22] MEDS: 0.9% Normal Saline (1000mL) 1,000 ML 75 ML IV (20:49)
[2023-09-22] MEDS: Insulin Lispro 100 UNIT/ML INSULN.PEN SC (20:57)
[2023-09-22] MEDS: Acetaminophen 325 MG Tablet 650 MG PO (20:57)
[2023-09-22 22:45] LABS: Bedside Glucose 236 mg/dL (74-106)
[2023-09-23 03:46] VITALS: BP 128/51; PULSE 77; RESP 17; TEMP 36.7; O2SAT 95
[2023-09-23 06:02] LABS: Absolute Lymphocyte Count 2.93 X10^3/uL (0.83-4.51); Absolute Neutrophil Count 6.2 X10^3/uL (2.0-7.7); Basophil# 0.07 X10^3/uL; Basophil% 0.6 % (0-1); Eosinophil# 0.28 X10^3/uL; Eosinophils% 2.6 % (0-5); Hematocrit 30.7 % (37-47); Hemoglobin 9.9 g/dL (12.0-15.0); Lymphocyte # 2.93 X10^3/ul (0.83-4.51); Lymphocyte % 26.9 % (19-41); Mean Corp Hgb Conc 32.2 g/dL (32-36); Mean Corpuscular Volume 86.7 fL (81-99); Monocyte# 1.33 X10^3/uL; Monocyte% 12.2 % (0-10); NRBC Flagged by Analyzer 0 % (0-5); Neutrophil # 6.19 X10^3/uL (2.7-7.7); Platelet Count 257 K/mm3 (150-450); RBC Distribution Width CV 14.3 % (11.6-14.6); RBC Distribution Width SD 45.5 fl (35.1-43.9); Red Blood Count 3.54 M/mm3 (4.2-5.4); White Blood Count 10.9 K/mm3 (4.4-11.0)
[2023-09-23 06:05] VITALS: BP 121/58; PULSE 88; RESP 16; TEMP 36.8; O2SAT 95
[2023-09-23] MEDS: Insulin Lispro 100 UNIT/ML INSULN.PEN SC ×4 (06:11→22:32)
[2023-09-23 06:24] LABS: Anion Gap 6 (5-15); BUN 17 mg/dL (7-18); BUN/Creat Ratio 26.8 RATIO (10-20); Calcium,Total 8.7 mg/dL (8.5-10.1); Chloride 110 mmol/L (98-107); Creatinine, Serum 0.64 mg/dL (0.55-1.02); EST Glomerular Filtration Rate 99 mL/min (>60); Est Glom Filt Rate - Afr Amer 119 mL/min (>60); Estimated Creatinine Clearance 73.66 ml/min; Glucose 174 mg/dL (74-106); Potassium 3.7 mmol/L (3.5-5.1); Sodium Level 140 mmol/L (136-145)
[2023-09-23 07:00] LABS: Bedside Glucose 165 mg/dL (74-106)
--- NOTE | 2023-09-23 09:59 | PN.HOSP_ITS ---
Subjective Subjective No issues overnight, still kind of weak. Objective Data Objective Data Vital Signs: Vital Signs Temp Pulse Resp BP Pulse Ox O2 Del Method 98.3 F 88 16 121/58 H 95 Room Air 09/23/23 06:05 09/23/23 06:05 09/23/23 06:05 09/23/23 06:05 09/23/23 06:05 09/23/23 06:05 Oxygen Delivery Method Room Air Weight: 186 lb Body Mass Index (BMI) 29.9 Intake & Output: Intake and Output for Last 24 Hours 09/22/23 09/23/23 09/24/23 03:59 03:59 03:59 Intake Total 1400 / 1400 1051.25 / 1051.25 Balance 1400 / 1400 1051.25 / 1051.25 Lab / Micro Data 09/23/23 05:40 09/23/23 05:40 Labs: Laboratory Results - last 24 hr 09/22/23 12:50: WBC 11.9 H, RBC 4.15 L, Hgb 11.5 L, Hct 36.0 L, MCV 86.7, MCH 27.7, MCHC 31.9 L, RDW Std Deviation 44.9 H, RDW Coeff of Davian 14.1, Plt Count 262, MPV 10.0, Immature Gran % (Auto) 1.300 H, Neut % (Auto) 74.8 H, Lymph % (Auto) 11.4 L, [place] % (Auto) 10.7 H, Eos % (Auto) 1.3, Baso % (Auto) 0.5, A bsolute Neuts (auto) 8.9 H, Absolute Lymphs (auto) 1.36, Nucleated RBC % 0, Sodium 139, Potassium 3.9, Chloride 109 H, Carbon Dioxide 20.0 L, Anion Gap 10, BUN 12, Creatinine 0.73, Estim Creat Clear Calc 75.61, Est GFR (MDRD) Af Amer 102, Est GFR (MDRD) Non-Af 85, BUN/Creatinine Ratio 16.5, Glucose 196 H, Calcium 8.8, Total Bilirubin 0.90, AST 36, ALT 25, Alkaline Phosphatase 62, Total Creatine Kinase 992 H, Total Protein 6.9, Albumin 2.7 L, Globulin 4.2, A lbumin/Globulin Ratio 0.6 L 09/22/23 13:44: Urine Color Yellow, Urine Clarity Sl. Cloudy, Urine pH 5.0, Ur Specific [employer] 1.020, Urine Protein 100 H, Urine Glucose (UA) 50 H, Urine Ketones 150 A*, Urine Occult Blood 25 H, Urine Nitrite Negative, Urine Bilirubin Negative, Urine Urobilinogen Normal, Ur Leukocyte Esterase Negative, Urine RBC 0 SEEN, Urine WBC 0 SEEN, Ur Squamous Epith Cells 0-5 SEEN, Urine Bacteria 0 SEEN, Urine Mucus 0 SEEN 09/22/23 20:45: POC Glucose 236 H 09/23/23 05:40: WBC 10.9, RBC 3.54 L, Hgb 9.9 L, Hct 30.7 L, MCV 86.7, MCH 28.0, MCHC 32.2, RDW Std Deviation 45.5 H, RDW Coeff of Davian 14.3, Plt Count 257, MPV 10.0, Immature Gran % (Auto) 0.700, Neut % (Auto) 57.0, Lymph % (Auto) 26.9, M zoe % (Auto) 12.2 H, Eos % (Auto) 2.6, Baso % (Auto) 0.6, Absolute Neuts (auto) 6.2, Absolute Lymphs (auto) 2.93, Nucleated RBC % 0, Sodium 140, Potassium 3.7, Chloride 110 H, Carbon Dioxide 24.0, Anion Gap 6, BUN 17, Creatinine 0.64, Estim Creat Clear Calc 73.66, Est GFR (MDRD) Af Amer 119, Est GFR (MDRD) Non-Af 99, B UN/Creatinine Ratio 26.8 H, Glucose 174 H, Calcium 8.7 09/23/23 06:08: POC Glucose 165 H Radiography Diagnostic Testing: Radiology Impression Chest X-Ray 09/22/23 12:38 IMPRESSION: No acute abnormality is seen. Electronically Signed: Vega Guillaume MD at 13:34 EDT , Rhythm Strip Rhythm Strip: Sinus Tach Rate: 110 Ectopy: None Physical Exam Narrative General: Alert, Oriented x3, Cooperative, No apparent distress HEENT: Atraumatic, PERRLA, EOMI, Normocephalic Oral: Moist Mucosa Neck: Supple, No JVD Lungs: Clear to auscultation, Normal air movement, No rhonchi, No wheeze, No rales Cardiovascular: Regular rate, Regular Rhythm, Normal S1, Normal S2, No murmurs Abdomen: Soft, Non Tender, Non-Distended, No Hepato-splenomegaly Extremities: No edema, Capillary Refill Less than 3 Seconds Skin: Redness and discoloration bilateral buttocks and coccyx Musculoskeletal: No Tenderness to Palpation of Joints or Extremities Neurological: No focal neurological deficits, Motor Exam 5/5 strength throughout, Sensory exam intact to light touch and pain Psych/Mental Status: Normal Affect, Appropriate Assessment & Plan Assessment/Plan (1) Weakness: PLAN: Plan 1. Generalized debility and weakness with mild rhabdo ? She was in the bathtub from determined amount of time. CPK was elevated 992 when she was admitted, will recheck in the morning as soon as continue with IV fluids ? PT/OT ? Will consult case management for discharge planning will likely need SNF 2. Essential HTN/HLD ? Blood pressures are stable ? Continue with her home medications ? Will monitor make adjustments as necessary 3. DM2 ? Will hold her home metformin ? Continue with insulin ? Accu-Cheks ACHS ? Will monitor make adjustments as necessary DVT: Heparin Charges/Coding Visit Charges Inpatient E&M: 43470 Subs Hosp L2
[2023-09-23 10:46] VITALS: BP 122/52; PULSE 92; RESP 16; TEMP 36.6; O2SAT 96
[2023-09-23 10:49] VITALS: PULSE 92
[2023-09-23] MEDS: Aspirin E.C. 81 MG Tablet PO ×2 (10:49→16:24)
[2023-09-23] MEDS: Cholecalciferol (Vit D3) 125 MCG CAPSULE (5,000 UNITS) PO (10:49)
[2023-09-23] MEDS: Metoprolol Tartrate 50 MG Tablet PO (10:49)
[2023-09-23] MEDS: amLODIPine 10 MG Tablet PO (10:49)
[2023-09-23] MEDS: Doxazosin 4 MG Tablet PO (10:49)
[2023-09-23] MEDS: Losartan Potassium 100 MG Tablet PO (10:49)
[2023-09-23] MEDS: Heparin Injection (Vial) 5,000 UNIT/ML VIAL 5000 UNIT SC ×2 (10:56→22:34)
[2023-09-23 11:29] LABS: Bedside Glucose 261 mg/dL (74-106)
--- NOTE | 2023-09-23 11:47 | CASEMGMT ---
MIRI received a phone call from patient's landlord, Lainey. Lainey stated patient's apartment is a mess and she has spoiled food in her refrigerator. Lainey said she was going to make a referral to [facility]. MIRI thanked Lainey for the information. Mary FROST
--- NOTE | 2023-09-23 12:38 | CASEMGMT ---
SW met with patient due to [facility] trigger. SW introduced self and role at [facility]. Patient denied any concerns with her home situation. Patient said she does fine with getting food as she is not always able to just get up and go to the store. She is aware that a lot of the stores deliver so she has thought about taking advantage of this. Patient used to get $50 a month from her insurance for groceries. Now she has to buy from a specific store through insurance. Patient stated she is not doing that as they had a can of soup for $9. Patient has a car and drives herself places. SW spoke with patient about [facility] and their services. Patient was not interested in SW making any referrals. Patient stated she is doing fine caring for herself and her home. She is aware some people may not like what they see when they go to her home. Patient said, Oh well. and she doesn't care. SW offered many resources and patient declined. Patient stated the only thing she needs assistance with is her laundry. Patient was open to home health. SW explained that home health would be a nurse maybe once a week and therapy would work with her a couple of times a week. It was originally thought patient was going to need a halfway due to being stuck in her bathtub for several days. However, patient walked SB/CG 250' with therapy so she would not qualify for SNF. Mary FROST
--- NOTE | 2023-09-23 15:13 | CASEMGMT ---
Met with patient to complete RIVERA form. RIVERA form explained to patient who voiced understanding and signed form. Original form placed in pt?s chart and copy provided to patient. Laisha Booth, Discharge Planning Asst
[2023-09-23 15:31] VITALS: BP 100/55; PULSE 85; RESP 16; TEMP 37.2; O2SAT 93
--- NOTE | 2023-09-23 15:57 | CASEMGMT ---
CHIDI GALLEGOS reviewed progress with therapy, 250 feet contact and recommendation for HHC. CHIDI CM in to discuss HHC with patient. Patient agreeable to HHC. CHIDI GALLEGOS explained homebound status for HHC, patient states she is not homebound. CHIDI GALLEGOS offered outapatient therapy, patient declining. Patient states she lives alone and has walker available. Patient denied needs at discharge. Hospitalist updated.
[2023-09-23] MEDS: Glucerna Shake 120 ML LIQUID PO (16:27)
[2023-09-23] MEDS: 0.9% Normal Saline (1000mL) 1,000 ML 75 ML IV (16:28)
[2023-09-23 16:47] LABS: Bedside Glucose 220 mg/dL (74-106)
[2023-09-23 22:21] VITALS: BP 120/47; PULSE 80; RESP 18; TEMP 36.4; O2SAT 96
[2023-09-23] MEDS: Pravastatin 40 MG Tablet PO (22:32)
[2023-09-23] MEDS: Menthol/Lanolin/Calamine/Znox 113 GM Tube 1 APPLIC TOPICAL (22:34)
[2023-09-24 00:06] VITALS: BP 114/52; PULSE 87
[2023-09-24 00:35] LABS: Bedside Glucose 214 mg/dL (74-106)
[2023-09-24 04:09] VITALS: BP 134/57; PULSE 88; RESP 18; TEMP 36.4; O2SAT 94
[2023-09-24] MEDS: 0.9% Normal Saline (1000mL) 1,000 ML 75 ML IV (04:13)
[2023-09-24 06:10] LABS: Absolute Lymphocyte Count 3.08 X10^3/uL (0.83-4.51); Absolute Neutrophil Count 4.3 X10^3/uL (2.0-7.7); Basophil# 0.06 X10^3/uL; Basophil% 0.7 % (0-1); Eosinophil# 0.23 X10^3/uL; Eosinophils% 2.6 % (0-5); Hematocrit 28.6 % (37-47); Lymphocyte # 3.08 X10^3/ul (0.83-4.51); Lymphocyte % 35.2 % (19-41); Mean Corp Hgb Conc 31.5 g/dL (32-36); Mean Corpuscular Hgb 27.6 pg (27.0-32.0); Mean Corpuscular Volume 87.7 fL (81-99); Monocyte# 0.99 X10^3/uL; Monocyte% 11.3 % (0-10); NRBC Flagged by Analyzer 0 % (0-5); Neutrophil # 4.33 X10^3/uL (2.7-7.7); Neutrophil % 49.6 % (47-70); Platelet Count 230 K/mm3 (150-450); RBC Distribution Width CV 14.5 % (11.6-14.6); RBC Distribution Width SD 46.5 fl (35.1-43.9); Red Blood Count 3.26 M/mm3 (4.2-5.4); White Blood Count 8.7 K/mm3 (4.4-11.0)
[2023-09-24 06:46] LABS: Anion Gap 6 (5-15); BUN 19 mg/dL (7-18); CPK Total, Creatine Kinase 455 U/L (26-192); Calcium,Total 8.4 mg/dL (8.5-10.1); Chloride 114 mmol/L (98-107); Creatinine, Serum 0.63 mg/dL (0.55-1.02); EST Glomerular Filtration Rate 99 mL/min (>60); Est Glom Filt Rate - Afr Amer 120 mL/min (>60); Estimated Creatinine Clearance 73.66 ml/min; Glucose 141 mg/dL (74-106); Potassium 3.7 mmol/L (3.5-5.1); Sodium Level 142 mmol/L (136-145)
[2023-09-24 06:58] LABS: Bedside Glucose 143 mg/dL (74-106)
--- NOTE | 2023-09-24 08:31 | DCINST_ITS ---
Discharge Instructions Diet Discharge Diet: Low fat / Low cholesterol Activity Discharge Activity: Return to Normal Activity Dressing / Incision Call your doctor if you observe: Fever of 101 or Higher, Shortness of breath, Dizziness, Fainting spells, Swelling in the ankles, Chest pain and Increased palpitations (irregular heartbeat) Follow Up Care Test Results: Test results from this visit will be discussed in further detail at your follow- up appointment, if applicable. Discharge Plan Admission Admit Date/Time: 09/22/23 15:40 Attending Provider: Matthew Vidal [facility] Providers: Ruben Saldana Discharge Orders/Prescriptions Prescriptions: Continued metformin 1,000 mg tablet 1,000 mg PO BID cholecalciferol (vitamin D3) 250 mcg (10,000 unit) capsule 125 mcg PO DAILY Levemir FlexPen 100 unit/mL (3 mL) insulin pen 70 unit subcut QHS aspirin [Adult Low Dose Aspirin] 81 mg tablet,delayed release (DR/EC) 81 mg PO BID amlodipine 10 mg tablet 10 mg PO DAILY metoprolol tartrate 50 mg tablet 50 mg PO BID doxazosin 4 mg tablet 4 mg PO DAILY losartan 100 mg tablet 100 mg PO QDAY Qty: 90 3RF pravastatin 40 mg tablet 40 mg PO QHS Qty: 90 3RF [facility] - Within 1 Week Disposition Disposition (needs filled in before D/C Order can be placed): Home Health Service
[2023-09-24 09:30] VITALS: BP 102/51; PULSE 99; RESP 16; TEMP 36.1; O2SAT 97
[2023-09-24 09:34] VITALS: PULSE 105
[2023-09-24] MEDS: Doxazosin 4 MG Tablet PO (09:34)
[2023-09-24] MEDS: Metoprolol Tartrate 50 MG Tablet PO (09:34)
[2023-09-24] MEDS: Losartan Potassium 100 MG Tablet PO (09:34)
[2023-09-24] MEDS: amLODIPine 10 MG Tablet PO (09:34)
[2023-09-24] MEDS: Aspirin E.C. 81 MG Tablet PO (09:34)
[2023-09-24] MEDS: Cholecalciferol (Vit D3) 125 MCG CAPSULE (5,000 UNITS) PO (09:34)
[2023-09-24] MEDS: Menthol/Lanolin/Calamine/Znox 113 GM Tube 1 APPLIC TOPICAL (09:35)
--- NOTE | 2023-09-24 10:02 | CASEMGMT ---
Patient has order for discharge. [facility] CM in to discuss needs at discharge. Patient continues to state she is not homebound for [facility]. Patient declines outpatient therapy at discharge. CHIDI GALLEGOS advised patient to follow up with PCP should she reconsider. Patient states she does not have phone services as her phone broke and she cannot afford replacement. CHIDI GALLEGOS told patient that this CM will reach out to for resources. Patient had no further questions or concerns. CHIDI GALLEGOS updated regarding phone resources.
[2023-09-24 12:42] VITALS: BP 110/57; PULSE 76; RESP 16; TEMP 36.4; O2SAT 98
--- NOTE | 2023-09-24 15:59 | PCM.DC.SUM ---
Providers Date of Admission: 09/22/23 Primary Care Physician: [facility] Consultations 09/23/23 11:29 Consult: Onc/Wound/lifter Routine Comment: Reason for Consult:: Coccyx wound Reason For Visit: DEBILITY Diagnosis Discharge Diagnosis (1) Weakness: Status: Acute Code(s): R53.1 - Weakness Medications at Discharge Home Medications losartan 100 mg tablet 100 mg PO QDAY blood pressure #90 tabs 05/05/17 pravastatin 40 mg tablet 40 mg PO QHS cholesterol #90 tabs 05/05/17 aspirin 81 mg tablet,delayed release (Adult Low Dose Aspirin) 81 mg PO BID heart health 05/27/23 cholecalciferol (vitamin D3) 250 mcg (10,000 unit) capsule 125 mcg PO DAILY vitamin 05/27/23 insulin detemir U-100 100 unit/mL (3 mL) subcutaneous pen (Levemir FlexPen) 70 unit subcut QHS diabetes 05/27/23 metformin 1,000 mg tablet 1,000 mg PO BID diabetes 05/27/23 amlodipine 10 mg tablet 10 mg PO DAILY blood pressure 09/22/23 doxazosin 4 mg tablet 4 mg PO DAILY urine 09/22/23 metoprolol tartrate 50 mg tablet 50 mg PO BID blood pressure 09/22/23 Hospital Course Operations None Procedures None Summary of Care Provided Minutes Spent on Discharge: 32 Hospital Course: Per HPI: SAMINA HANCOCK, is a 67 F who presents to the emergency room at [facility] after being found in her bathtub at home, patient stated that she has been in the bathtub for an unknown length of time, she was unable to get out of the bathtub on her own and bruised her right arm. Patient lives alone. Workup in the emergency room included a CBC which showed an elevated white blood cell count 11.9, hemoglobin was 11.5, chemistry profile was remarkable for glucose of 196, patient CPK was 992. Patient does not know which day she was stuck in her bathtub, she thinks it may have been Wednesday. Patient is a poor informant Patient will be placed in observation status on MedSurg 3, she will be seen by PT and OT, she may require short-term stay in a jail facility. Patient states she was in a [facility] in May under similar circumstances for generalized debility and weakness. Hospital Course: 1. Generalized debility and weakness with mild rhabdo?67-year-old female was found in her bathtub at home and she does not know how long she was in the bathtub and had difficulty getting out of the bathtub on her own presented to the hospital and was found to have slight rhabdo with CPK of 992 which decreased by 50% today on the day of discharge. She will start on IV fluids and had an appropriate drop in her hemoglobin. She was eval by physical therapy and outpatient therapy and she was able to ambulate 250 feet. She did not meet criteria for SNF and said that she was not homebound and therefore did not qualify for home health care. We did offer him outpatient physical therapy which she refused. She not have a UTI or pneumonia or anything else to explain her debility, discussed with her the plan for possible discharge today she expressed understanding the risk benefits of going home and would like to go home today. She had a similar episode of this back in May and at that time was discharged to a [facility] however she was not as weak this time around and she feels that she is able to go home today. I recommended she follow-up with her PCP in 3 to 5 days. 2. Essential hypertension, hyperlipidemia, type 2 diabetes are all chronic medical conditions which complicate her care. Her home medications were continued where appropriate Physical Exam Narrative General: Alert, Oriented x3, Cooperative, No apparent distress HEENT: Atraumatic, PERRLA, EOMI, Normocephalic Oral: Moist Mucosa Neck: Supple, No JVD Lungs: Clear to auscultation, Normal air movement, No rhonchi, No wheeze, No rales Cardiovascular: Regular rate, Regular Rhythm, Normal S1, Normal S2, No murmurs Abdomen: Soft, Non Tender, Non-Distended, No Hepato-splenomegaly Extremities: No edema, Capillary Refill Less than 3 Seconds Skin: Redness and discoloration bilateral buttocks and coccyx Musculoskeletal: No Tenderness to Palpation of Joints or Extremities Neurological: No focal neurological deficits, Motor Exam 5/5 strength throughout, Sensory exam intact to light touch and pain Psych/Mental Status: Normal Affect, Appropriate Weight / BMI Weight Weight: 186 lb Body Mass Index (BMI) 29.9 ABG / Lab / Microbiology Data 09/24/23 05:40 08/09/24 05:40 Laboratory: Laboratory Results - last 24 hr 09/23/23 16:23: POC Glucose 220 H 09/23/23 22:25: POC Glucose 214 H 09/24/23 05:40: WBC 8.7, RBC 3.26 L, Hgb 9.0 L, Hct 28.6 L, MCV 87.7, MCH 27.6, MCHC 31.5 L, RDW Std Deviation 46.5 H, RDW Coeff of Davian 14.5, Plt Count 230, MPV 10.0, Immature Gran % (Auto) 0.600, Neut % (Auto) 49.6, Lymph % (Auto) 35.2, [place] % (Auto) 11.3 H, Eos % (Auto) 2.6, Baso % (Auto) 0.7, Absolute Neuts (auto) 4.3, Absolute Lymphs (auto) 3.08, Nucleated RBC % 0, Sodium 142, Potassium 3.7, Chloride 114 H, Carbon Dioxide 22.0, Anion Gap 6, BUN 19 H, Creatinine 0.63, Estim Creat Clear Calc 73.66, Est GFR (MDRD) Af Amer 120, Est GFR (MDRD) Non-Af 99, BUN/Creatinine Ratio 30.0 H, Glucose 141 H, Calcium 8.4 L, Total Creatine Kinase 455 H 09/24/23 06:24: POC Glucose 143 H D/C Instructions Discharge Diet: Low fat / Low cholesterol Call your doctor if you observe: Fever of 101 or Higher, Shortness of breath, Dizziness, Fainting spells, Swelling in the ankles, Chest pain and Increased palpitations (irregular heartbeat) Meaningful Use Info Meaningful Use Meaningful Use Diagnoses (Choose all that apply): None applicable Ischemic Stroke Statin Dosing Therapy Reference: STATIN DOSE THERAPY REFERENCE: * Patients > 75 years receive moderate or high dose statin therapy. * Patients 75 years or YOUNGER should receive HIGH intensity statin dose unless contraindicated. You will be required to document reason for non-treatment if statin daily dose does not meet guidelines. HIGH DOSE STATIN THERAPY DAILY Atorvastatin > than or = to 40 mg Rosuvastatin > than or = to 20 mg Amlodipine + Atorvastatin > than or = to 2.5/40 mg Ezetimibe + Simvastatin 10/80 mg Simvastatin 80mg Discharge Plan Admission Admit Date/Time: 09/22/23 15:40 Attending Provider: Matthew Vidal [facility] Providers: Ruben Saldana Discharge Orders/Prescriptions Prescriptions: Continued metformin 1,000 mg tablet 1,000 mg PO BID cholecalciferol (vitamin D3) 250 mcg (10,000 unit) capsule 125 mcg PO DAILY Levemir FlexPen 100 unit/mL (3 mL) insulin pen 70 unit subcut QHS aspirin [Adult Low Dose Aspirin] 81 mg tablet,delayed release (DR/EC) 81 mg PO BID amlodipine 10 mg tablet 10 mg PO DAILY metoprolol tartrate 50 mg tablet 50 mg PO BID doxazosin 4 mg tablet 4 mg PO DAILY losartan 100 mg tablet 100 mg PO QDAY Qty: 90 3RF pravastatin 40 mg tablet 40 mg PO QHS Qty: 90 3RF [facility] - Within 1 Week Disposition Disposition (needs filled in before D/C Order can be placed): Home, Self Care Charges/Coding Visit Charges Inpatient E&M: 56397 Disch Hosp >30min
== END 2023-09-24 08:34 | disposition home or self-care (01) ==
LOC: ED 15:24 → PCU 17:48
PROVIDERS: Admitting Provider Internal Medicine; Emergency Provider Emergency Medicine; Visit Provider Family Medicine
DX: R53.81 Other malaise (principal); E11.9 Type 2 diabetes mellitus without complications; Z79.4 Long term (current) use of insulin; Z79.82 Long term (current) use of aspirin; I10 Essential (primary) hypertension; E78.5 Hyperlipidemia, unspecified; M62.82 Rhabdomyolysis; Z87.891 Personal history of nicotine dependence; R53.1 Weakness; Z95.1 Presence of aortocoronary bypass graft; Z79.899 Other long term (current) drug therapy; Z79.84 Long term (current) use of oral hypoglycemic drugs; S40.021A Contusion of right upper arm, initial encounter; X58.XXXA Exposure to other specified factors, initial encounter
CPT/HCPCS: 36415; 71045; 80048; 80053; 81001; 82550; 82962; 85025; 93005; 96360; 96361; 96372; 97162; 97802; 99221; 99285; J7030; P9612; G0378

== ENCOUNTER 2023-11-17 17:09 | Outpatient (RCR) | payer MEDICARE, SELFPAY ==
--- NOTE | 2023-12-01 16:05 | HP.PTEVAL_ITS ---
Patient's Visit Information Visit Information Visit Information: SAMINA HANCOCK is a 68 year old F referred to Physical Therapy by Diamond Carrero Halley, [employer] BUSINESS DEVELOPMENT [employer]NAGER-[employer] with a diagnosis of Impaired mobility. Date of Evaluation: 11/17/23 Physical Therapist: Cory Velazquez DPT Visit Plan Frequency: 1x/Week Duration: 4 Weeks Plan: 1) squats, hip abd, calf strength 2) gait stability with FWW 3) progress HEP with focus on LE strengthening. Subjective Subjective: Pt. is here today for her initial evaluation with diagnosis of impaired mobility. Pt. reports going to the hospital in May when she was cleaning her apartment and was unable to get up off the floor. She ended up in the hospital with rhabdomyolysis. PT. reports having a general weakness since. She is having some issues with overall imbalance and leg weakness. She did add that she has not been eating much as a way to lose wt. and manage blood sugar. She reports this is the only way she can lose wt. I talked to her about managing portions rather than not eating. pt. reports this does not work. She reports she does not have the strength to clean her house and feels she might get evicted du e to this. She denies N/T that her legs give out on her. She feels like she is just weak. Pt. is hopeful to get stronger in order to increase her mobility in home and in community. Pain Buttock: Pain Intensity (Out of 10): 2 Pain Intensity Range: 0 and 2 Objective Objective: POSTURE: Pt. has slouched posture in stance. Pt. is able to stand without AD, but does rely on her walker for some stability. PALPATION: Pt. has no pain with palpation of BLEs. NEURO: Pt. has normal DTR of BLEs. Pt. does have difficulty with heel raises and more so with toe raises. ROM: PT. has tightness throughout BLEs and lumbar spine. Tight HS and hip flexor noted. MMT: RLE: ankle 5-/5 throughout; knee: ext 23.4#, flexion 18.9#; LLE: ankle 5-/5 throughout; knee: ext 21.9#, flexion 18.1#. 30sec sit to stand 5 with use of UEs. TU.1 sec with use of FWW. Balance/Special Test Scores Lower Extremity Functional Score: 37 30 Second Chair Rise Test Seconds: 7 6 Minute Walk Test: 480feet with FWW Goals Goal 1:: LTG: Pt. to be I with HEP. Goal Time Frame: 4-6 Weeks Goal 2:: STG: Pt. to ambulate with good mechanics without LOB with use if FWW. Goal 3:: LTG: Pt. to have increased BLE strength by 1/2 grade throughout. Goal Time Frame: 2-4 Weeks Goal 4:: LTG: Pt. to complete 30sec sit to stand rep test with 8 reps without use of UEs. Goal Time Frame: 4-6 Weeks Goal 5:: LTG: Pt. to complete TUG with less than 15sec with FWW indicating increased functional stability. Goal Time Frame: 4-6 Weeks Rehabilitation Potential Physical Therapy Diagnosis: Pt. has signs and symptoms consistent with impaired mobility. Pt. has marked weakness in her BLEs. Pt. has overall issues iwth her mobility and would benefit from PT to address this. She did report that she has reduced meals to x1 per day in attempt to lose wt. I talked with her about managing her diabetes. Pt. would benefit from PT to increase a LE strengthening and balance program. Rehabilitation Potential: Fair Anticipated Interventions Patient/Client Instruction: Educate patient on: Condition, Plan of Care, Risk Factors and Benefits of Fitness Program For the Purpose of:: To improve decision making, To facilitate caregiver knowledge, To improve self management, To prevent re-injury, To improve ability to perform tasks related to life management and To improve tolerance to ADL's Therapeutic Exercise to Include: Strength training, Power training, Endurance training and Balance training For the Purpose of:: To decrease pain, To decrease swelling/inflammation, To increase ROM and To increase oxygenation perfusion Text: Thank you for the opportunity to evaluate your patient. For Medicare and Medicare HMO plans, please review the plan of care and approve it. It will need to be FAXED BACK to us at [phone] for Medicare purposes. For Medicare only, by signing this I certify the plan of care. Please let me know if there are questions or concerns regarding this plan of care. Physician Signature: Date:
== END 2023-11-17 19:00 | disposition home or self-care (01) ==
LOC: PT 17:09
PROVIDERS: Referring Provider Nurse Practitioner Family; Visit Provider Nurse Practitioner Family
DX: Z74.09 Other reduced mobility (principal)
CPT/HCPCS: 97110; 97161

== ENCOUNTER 2024-10-21 22:55 | Emergency (ER) | payer MEDICARE, SELFPAY ==
[2024-10-21 22:57] VITALS: BP 149/59; PULSE 96; RESP 18; TEMP 36.6; O2SAT 100; BMI 30.3
[2024-10-22 00:56] VITALS: BP 144/73; PULSE 84; RESP 16; O2SAT 99
--- NOTE | 2024-10-22 01:28 | EDS_ITS ---
HPI History of Present Illness Chief Complaint: Hypoglycemia Informant: patient and EMS Narrative Narrative: Patient is a 68-year-old female with past medical history of hypertension and insulin-dependent diabetes. She states that she took her Lantus around noon like she normally does. She states that she did not have much at home to eat and therefore did not really ingest anything. She states this evening she began to feel overall weakness and she melted to the floor. She states that this has happened before when her blood sugar has been low. She denies striking her head or any loss of consciousness. She denies any history of bleeding disorder or blood thinner use. She states she was only on the ground for approximately 10 minutes before EMS arrived. However with her generalized weakness and low blood sugar she was concerned that she may need intervention such as IV glucose and was brought to the hospital for evaluation [facility] Medical History (Updated 10/22/24 @ 03:[address] Gerry Cunningham, DO) Chest pain Pilonidal cyst Kidney calculi Diabetes Hepatitis Former smoker Hypertension Home Medications ?Medication ?Instructions ?Recorded ?Last Taken ?Type losartan 100 mg tablet 100 mg PO QDAY blood pressur e #90 05/05/17 09/19/23 Rx tabs pravastatin 40 mg tablet 40 mg PO QHS cholesterol #90 tabs 05/05/17 09/19/23 Rx aspirin 81 mg tablet,delayed 81 mg PO BID heart health 05/27/23 09/19/23 History release (Adult Low Dose Aspirin) cholecalciferol (vitamin D3) 250 125 mcg PO DAILY roberto min 05/27/23 09/19/23 History mcg (10,000 unit) capsule insulin detemir U-100 100 unit/mL 70 unit subcut QHS d iabetes 05/27/23 09/19/23 History (3 mL) subcutaneous pen (Levemir FlexPen) metformin 1,000 mg tablet 1,000 mg PO BID diabetes 01/0809/19/23 History amlodipine 10 mg tablet 10 mg PO DAILY blood pressur e 09/22/23 09/19/23 History doxazosin 4 mg tablet 4 mg PO DAILY urine 09/22/23 09/19/23 History metoprolol tartrate 50 mg tablet 50 mg PO BID blood pr essure 09/22/23 09/19/23 History Allergy/AdvReac Type Severity Reaction Status Date / Time lisinopril AdvReac cough Verified 10/21/24 22:57 Surgical History H/O section S/P triple vessel bypass Social History Smoking Status: Current every day smoker tobacco type: cigarettes ROS ROS ED Constitutional Constitutional ED: Reports other Details: Positive fatigue ; Denies chills or fever(s) Eyes Eyes: Denies change in vision ENT ENT ED: Denies sore throat Cardiovascular Cardiovascular: Reports other Details: Negative syncope ; Denies chest pain, palpitations or racing heartbeat Respiratory/Chest Respiratory/Chest: Denies cough or dyspnea Gastrointestinal Gastrointestinal: Denies abdominal pain, diarrhea, nausea or vomiting Genitourinary Genitourinary ED: Denies dysuria Musculoskeletal Musculoskeletal: Denies back pain or neck pain Integumentary Reports other Details: Positive chronic skin breakdown in the gluteal region Neurologic Neurologic: Reports weakness; Denies headache(s) Hematologic/Lymphatic Hematologic/Lymphatic: Denies easy bleeding or easy bruising EXAM Physical Exam Const Vital Signs: 10/21/24 22:57 10/21/24 22:57 10/22/24 00:56 Temperature 98 F Temperature Source Oral Pulse Rate 96 84 Respiratory Rate 18 16 Respiratory Effort Normal Respiratory Pattern Normal Blood Pressure 149/59 H 144/73 H Blood Pressure Mean 89 96 Pulse Ox 100 99 Oxygen Delivery Method Room Air Room Air 10/22/24 01:39 10/22/24 02:00 Temperature 98.0 F Temperature Source Pulse Rate 89 88 Respiratory Rate 19 H 17 Respiratory Effort Respiratory Pattern Blood Pressure 150/57 H 140/49 H Blood Pressure Mean 88 79 Pulse Ox 98 97 Oxygen Delivery Method Room Air Positive well nourished and well developed General Appearance ED: well developed; Negative for pallor HEENT HEENT Narrative: Normocephalic atraumatic No signs of depressed or basilar skull fracture Eyes PERRL and EOMs intact bilaterally General Eye ED: Negative for scleral icterus Neck supple Neck Narrative: No nuchal rigidity or meningeal signs No bony deformity or step-off of the cervical spine no midline tenderness to palpation Resp normal respiratory effort and clear to auscultation bilaterally Cardio regular rate and regular rhythm Rate: other Other Details: Radial and carotid pulses are equal and symmetric GI normal to inspection, nondistended, normoactive bowel sounds, non-tender, non- distended and no masses GI Narrative: No voluntary guarding or rigidity or pulsatile mass Auscultation: normoactive bowel sounds Palpation: soft Back/Spine Back/Spine Narrative: No bony deformity or step-off of the thoracic or lumbar spine; no midline tenderness to palpation Extremity normal to inspection Extremity Narrative: Pelvis is stable there is no shortening or external rotation of either lower extremity No signs of long bone injury such as bony deformity or joint effusion Patient is able to move all extremities at baseline Neuro oriented x3 and CN's II-XII intact bilaterally Neuro Narrative: GCS of 15 Cranial nerves II through XII are grossly intact without focal neurologic deficit Sensorium / Orientation: alert Psych mental status grossly normal Skin No skin turgor normal Skin Narrative: Patient has stage I skin breakdown in the gluteal region without secondary findings to suggest infection Skin turgor is increased as well General Skin Exam: Negative for jaundice or pallor MDM MDM MDM Narrative Medical decision making narrative: Patient arrived to the ER hypertensive but has a past medical history of this. She reported that she felt weak and lowered herself to the ground and there was no true fall. She did not strike her head nor is she on a blood thinner and my concern for traumatic subarachnoid or subdural hemorrhage is low and I do not feel the need for head CT. She denied any palpitations or chest pain or syncope and therefore I have low concern for cardiac dysrhythmia or ACS. EMS reported a blood sugar of 56 which correlates with the value obtained in the ER. This also correlates with her history of taking metformin and Lantus but then not eating throughout the day leading to generalized weakness from hypoglycemia. As she is awake and alert with no signs of neurologic deficit I do not feel the need to activate a stroke alert or perform CT of the head. The patient was given food as she is awake and alert with stable vitals. 1 hour after eating her blood sugar remains normal at 139. Therefore as she does not have signs of underlying trauma vitals are stable and neurologic exam is normal and she is not having persistent drops in her glucose there is no need for admission for dextrose by IV route and she is otherwise safe to return home. Of note I did discuss with the patient that based on her generalized weakness and reports that she is little food to eat that we could talk about potential admission and assisted placement. She states that she does not want this and would prefer to return home and then as she is awake alert and oriented with stable vitals and competent to make this decision she will be discharged as requested History & Record Review Discussion w/independent historian: EMS personnel and Patient Lab Data Attestation: I reviewed the patient's lab results. Labs: Laboratory Results - last 24 hr 10/21/24 10/22/24 23:04 01:02 POC Glucose 61 L 139 H Discharge Plan Triage Chief Complaint: Hypoglycemia ED Provider: Gerry Cunningham Dx/Rx/DC Orders Clinical Impression: Hypoglycemia, Diabetes mellitus, type II, insulin dependent, Generalized weakness, Hypertension Instructions: Hypoglycemia (Low Blood Sugar), Diabetes: Caring for Your Body Prescriptions: No Action metformin 1,000 mg tablet 1,000 mg PO BID cholecalciferol (vitamin D3) 250 mcg (10,000 unit) capsule 125 mcg PO DAILY Levemir FlexPen 100 unit/mL (3 mL) insulin pen 70 unit subcut QHS aspirin [Adult Low Dose Aspirin] 81 mg tablet,delayed release (DR/EC) 81 mg PO BID amlodipine 10 mg tablet 10 mg PO DAILY metoprolol tartrate 50 mg tablet 50 mg PO BID doxazosin 4 mg tablet 4 mg PO DAILY losartan 100 mg tablet 100 mg PO QDAY Qty: 90 3RF pravastatin 40 mg tablet 40 mg PO QHS Qty: 90 3RF Primary Care Provider: Diamond Carrero Referrals: Diamond Carrero, [facility] [Primary Care Provider] - Print Language: Pashto Disposition Disposition: Home, Self Care
[2024-10-22 01:39] VITALS: BP 150/57; PULSE 89; RESP 19; TEMP 36.7; O2SAT 98
[2024-10-22 02:00] VITALS: BP 140/49; PULSE 88; RESP 17; O2SAT 97
[2024-10-22 04:00] VITALS: BP 152/51; PULSE 96; RESP 21; O2SAT 95
== END 2024-10-22 04:20 | disposition home or self-care (01) ==
PROVIDERS: Emergency Provider Emergency Medicine; PCP Nurse Practitioner Family; Visit Provider Emergency Medicine
DX: E11.649 Type 2 diabetes mellitus with hypoglycemia without coma (principal); Z79.4 Long term (current) use of insulin; I10 Essential (primary) hypertension; R53.1 Weakness; Z79.84 Long term (current) use of oral hypoglycemic drugs; F17.210 Nicotine dependence, cigarettes, uncomplicated
CPT/HCPCS: 82962; 99284